=== PATIENT | male | born 1990 | race Caucasian/White ===

== ENCOUNTER → 2021-05-22 14:15 | Outpatient (BNVA) | payer MEDICAID, SELFPAY | PROVIDERS: PCP Internal Medicine; Referring Provider Internal Medicine; Visit Provider Nurse Practitioner Family | DX: K58.1 Irritable bowel syndrome with constipation (principal); R14.0 Abdominal distension (gaseous) | CPT/HCPCS: 36415; 82306; 82607; 82746; 84443; 86140; 86364; 99202 ==

== ENCOUNTER 2021-05-22 15:26 | Outpatient (REF) | payer MEDICAID, SELFPAY ==
[2021-05-22 16:27] LABS: C Reactive Protein 0.05 mg/dL (< or = 0.50)
[2021-05-22 16:50] LABS: TSH reflex Free T4 1.27 uIU/mL (0.32-4.0)
[2021-05-22 17:34] LABS: Folate > 20.0 ng/mL (> or = 4.0); Vitamin B12 966 pg/mL (200-900)
[2021-05-23 14:51] LABS: Transglutaminase Ab IgG <1.0 U/mL; Transglutaminase IgA <1.0 U/mL
[2021-05-26 12:56] LABS: Vitamin D 25-OH, D2 15 ng/mL; Vitamin D 25-OH, D3 34 ng/mL; Vitamin D 25-OH, Total 49 ng/mL (30-100)
== END 2021-05-22 15:27 | disposition home or self-care (01) ==
LOC: HO.LAB 15:26
PROVIDERS: PCP Psychiatry & Neurology Neurology; Visit Provider Nurse Practitioner Family
DX: R10.11 Right upper quadrant pain (principal); R19.7 Diarrhea, unspecified; E55.9 Vitamin D deficiency, unspecified; R14.0 Abdominal distension (gaseous); K58.9 Irritable bowel syndrome, unspecified
CPT/HCPCS: 36415; 82306; 82607; 82746; 84443; 86140; 86364

== ENCOUNTER 2021-06-20 14:56 | Outpatient (REF) | payer MEDICAID, SELFPAY ==
[2021-06-22 15:41] LABS: H Pylori Breath Test Negative (Negative)
== END 2021-06-20 14:57 | disposition home or self-care (01) ==
LOC: HO.LNP 14:56
PROVIDERS: PCP Psychiatry & Neurology Neurology; Referring Provider Psychiatry & Neurology Neurology; Visit Provider Nurse Practitioner Family
DX: K58.2 Mixed irritable bowel syndrome (principal); R14.0 Abdominal distension (gaseous); Z11.0 Encounter for screening for intestinal infectious diseases
CPT/HCPCS: 83013; 99212

== ENCOUNTER → 2021-12-18 15:10 | Outpatient (BNVA) | payer MEDICAID, SELFPAY | PROVIDERS: PCP Psychiatry & Neurology Neurology; Visit Provider Nurse Practitioner Family | DX: K58.2 Mixed irritable bowel syndrome (principal); R14.0 Abdominal distension (gaseous) | CPT/HCPCS: 99212 ==

== ENCOUNTER 2022-06-18 14:59 | Outpatient (REF) | payer MEDICAID, SELFPAY ==
[2022-06-18 16:17] LABS: Hematocrit 42.2 % (42.0-52.0); Hemoglobin 14.9 g/dl (14.0-18.0); Mean Corpuscular HGB Conc 35.3 g/dl (31.0-36.0); Mean Corpuscular Hemoglobin 30.5 pg (27.0-33.0); Mean Corpuscular Volume 86.3 fL (80.0-98.0); Mean Platelet Volume 9.7 fL (9.4-12.4); Platelet Count 326 X10*3/uL (160-400); Red Blood Count 4.89 X10*6/uL (4.60-5.80); White Blood Count 12.2 X10*3/uL (4.8-10.8)
[2022-06-18 16:36] LABS: Alanine Aminotransferase 25 U/L (0-40); Albumin Level 4.4 g/dL (3.5-5.0); Alkaline Phosphatase 85 U/L (39-117); Anion Gap 13 (12-20); Aspartate Amino Transferase 19 U/L (5-37); Bilirubin Total 0.6 mg/dL (0.0-1.0); Blood Urea Nitrogen 18 mg/dL (9-16); C Reactive Protein 1.73 mg/dL (< or = 0.50); Calcium 9.4 mg/dL (8.4-10.2); Carbon Dioxide 27 mmol/L (22-29); Chloride 103 mmol/L (96-108); Estimated Glomerular Filt Rate > 60; Glucose Random 135 mg/dL (60-115); Lipase 57 U/L (8-78); Sodium 139 mmol/L (135-145); Total Protein 7.6 g/dL (6.5-8.0)
[2022-06-22 15:43] LABS: Vitamin D 25-OH, D2 4 ng/mL; Vitamin D 25-OH, D3 31 ng/mL; Vitamin D 25-OH, Total 35 ng/mL (30-100)
== END 2022-06-18 15:00 | disposition home or self-care (01) ==
LOC: HO.LAB 14:59
PROVIDERS: PCP Internal Medicine; Visit Provider Nurse Practitioner Family
DX: R10.9 Unspecified abdominal pain (principal); E55.9 Vitamin D deficiency, unspecified; K21.9 Gastro-esophageal reflux disease without esophagitis; K58.2 Mixed irritable bowel syndrome; R14.0 Abdominal distension (gaseous)
CPT/HCPCS: 36415; 80053; 82306; 83690; 85027; 86140; 99212

== ENCOUNTER 2022-06-25 14:30 | Outpatient (REF) | payer MEDICAID, SELFPAY | END 2022-06-25 14:31 | disposition home or self-care (01) | LOC: HO.LNP 14:30 | PROVIDERS: Visit Provider Nurse Practitioner Family | DX: Z13.89 Encounter for screening for other disorder (principal) ==

== ENCOUNTER 2022-06-26 16:18 | Outpatient (REF) | payer MEDICAID, SELFPAY | END 2022-06-26 16:19 | disposition home or self-care (01) | LOC: HO.LNP 16:18 | PROVIDERS: Visit Provider Nurse Practitioner Family | DX: R10.9 Unspecified abdominal pain (principal) | CPT/HCPCS: 82656 ==

== ENCOUNTER 2025-01-06 11:36 | Outpatient (REF) | payer MEDICAID, SELFPAY ==
[2025-01-06 14:31] LABS: MANUAL DIFF FLAG NO
[2025-01-06 14:37] LABS: Hematocrit 41.5 % (42.0-52.0); Hemoglobin 14.7 g/dl (14.0-18.0); Imm Gran Abs Auto 0.02 X10*3/uL (0.00-0.03); Imm Gran Pct Auto 0.3 % (0.0-0.4); Lymphocytes Absolute Auto 2.6 X10*3/uL (1.2-4.9); Mean Corpuscular HGB Conc 35.4 g/dl (31.0-36.0); Mean Corpuscular Hemoglobin 30.3 pg (27.0-33.0); Mean Corpuscular Volume 85.6 fL (80.0-98.0); NRBC Abs Auto 0.000 X10*3/uL (0.0-0.012); NRBC Pct Auto 0.0 /100WBC (0.0-0.2); Platelet Count 308 X10*3/uL (160-400); Red Blood Count 4.85 X10*6/uL (4.60-5.80); White Blood Count 7.3 X10*3/uL (4.8-10.8)
[2025-01-06 14:55] LABS: Alanine Aminotransferase 47 U/L (0-40); Albumin Level 4.8 g/dL (3.5-5.0); Alkaline Phosphatase 105 U/L (39-117); Anion Gap 12 (12-20); Aspartate Amino Transferase 39 U/L (5-37); Blood Urea Nitrogen 16 mg/dL (9-16); Calcium 9.9 mg/dL (8.4-10.2); Carbon Dioxide 26 mmol/L (22-29); Chloride 105 mmol/L (96-108); Cholesterol 194 mg/dL (<200); Estimated Glomerular Filt Rate > 60; HDL Cholesterol 44 mg/dL (>40); Potassium 4.0 mmol/L (3.3-5.1); Sodium 139 mmol/L (135-145); Total Protein 8.1 g/dL (6.5-8.0); Triglycerides 164 mg/dL (<150)
[2025-01-06 17:41] LABS: Appearance Urine Clear; Glucose Urine UA Negative (Negative); PH 8.5 (5.0-9.0); Specific Gravity - Urine 1.015 (1.005-1.025)
[2025-01-07 08:06] LABS: HIV Num 1 0.06 S/CO (0.00-0.99); ~HepC Num1 0.13 S/CO (0.00-0.79); ~Hepatitis C Antibody Nonreactive (Nonreactive)
[2025-01-07 12:30] LABS: CT PCR Urine NOT DETECTED (Not Detect.); NG PCR Urine NOT DETECTED (Not Detect.)
== END 2025-01-06 11:37 | disposition home or self-care (01) ==
LOC: HO.CHCLDS 11:36
PROVIDERS: Visit Provider Internal Medicine
DX: Z00.00 Encounter for general adult medical examination without abnormal findings (principal); Z11.3 Encounter for screening for infections with a predominantly sexual mode of transmission; Z11.8 Encounter for screening for other infectious and parasitic diseases; Z11.4 Encounter for screening for human immunodeficiency virus [HIV]; Z11.59 Encounter for screening for other viral diseases
CPT/HCPCS: 36415; 80053; 80061; 81003; 84443; 85025; 86592; 86803; 87389; 87491; 87591

== ENCOUNTER 2025-02-07 10:45 | Outpatient (REF) | payer MEDICAID, SELFPAY ==
--- OUTSIDE RECORDS SUMMARY | 2025-02-07 10:45 | XMS_ITS | Encounter Summary ---
Author Organization [employer] Address [address] [place] [address] Care Team Providers Care Organizational Development Consultant Name Role Phone Alicia Maldonado MD Primary Care Provider [phone] Encounter Details Date Type Department Care Team ([facility] st Contact Info) Description 02/07/2025 10:45 AM EDT Immunization [facility] [address] [place] [address] Arrived Social History Tobacco Use Types Packs/Day Years Used Date Smoking Tobacco: Never Smokeless Tobacco: Never Depression Answer Date Recorded Patient Health Questionnaire-9 Score 6 01/06/2025 Patient Health Questionnaire-9 Score 6 01/06/2025 Last PHQ-9: Questionnaire Data Not on file 0 01/06/2025 Housing Stability Answer Date Recorded What is your housing situation today? I have brigittelydia ocampo 01/06/[address] you li ve. Do you have problems with any of the following? None of the above 01/06/2025 Food Insecurity Answer Date Recorded Within the past 12 months, y ou worried that your food would run out before you got money to buy more: Often true 01/06/2025 Within the past 12 months,th e food you bought just didn't last and you didn't have enough money to get more: Often true Transportation Answer Date Recorded In the past 12 months, has l ack of transportation kept you from medical appts, meetings, work or from getting things needed for daily living? No 03/24/2023 Utilities Answer Date Recorded In the past 12 months, has t he electric, gas, oil or water company threatened to shut off services in your home? No 01/06/2025 Depression Answer Date Recorded Patient Health Questionnaire-2 Score 0 01/06/2025 Internet Access Answer Date Recorded Internet Access Q1 Yes 01/06/2025 Internet Access Q2 Not on file 01/06/2025 Sex and Gender Information Value Date Recorded Sex Assigned at Male 03/18/2022 10:39 AM EDT Legal Sex Male 10:39 AM EDT Gender Identity Male 03/18/2022 10:39 AM EDT Sexual Orientation Lesbian or Boyle 03/18/2022 10 :39 AM EDT documented as of this encounter Progress Notes * Ghazala Nettles RN - 02/07/2025 10:45 AM EDT Author called out pt name x2 in waiting room and asked each individual in waiting room what name was. Pt not in waiting room each time when author called. documented in this encounter Plan of Treatment Not on file documented as of this encounter Visit Diagnoses Not on filedocumented in this encounter Additional Health Concerns Assessment Noted Time PHQ-9 Depression Total Score: 6 01/07/20 25 10:51 AM EDT documented as of this encounter Care Teams Organizational Development Consultant Relationship Specialty Start Date End Date Alicia Maldonado MD [address] [place] [phone] PCP - General Internal Medicine 03/12/21 documented as of this encounter
--- OUTSIDE RECORDS SUMMARY | 2025-02-07 13:15 | XMS_ITS | Clinical Summary ---
Author Organization [employer] Address [address] [place] [address] Care Team Providers Care Car Rider Name Role Phone Alicia Maldonado MD Primary Care Provider Allergies No known active allergies Medications ibuprofen 800 MG tabletIndicatio ns:Chronic right-sided low back pain without sciatica Take 1 tablet (800 mg) by mouth if needed each day for mild pain. 30 tablet 3 5 05/06/20 25 Active tiZANidine (Zanaflex) 2 MG tabletIndicatio ns:Chronic right-sided low back pain without sciatica Take 1 tablet (2 mg) by mouth every 6 (six) hours if needed for muscle spasms for up to 10 days. 30 tablet 5 Active carbamide peroxide (Debrox) 6.5 % otic solutionIndicat ions:Impacted cerumen of right ear Administer 5-10 drops into affected ear(s) 2 times daily for 4 days. 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 Asthma 07/18/2022 Encounters Date Type Department Care Team Description 02/07/2025 10:45 AM EDT Immunization [facility] [address] [place], [place] [phone] Arrived 02/07/2025 Travel 01/31/2025 Travel 01/07/2025 Results Follow-Up [facility] [address] [place], [place] [phone] Wing Alaina, RN CBC auto differential, Comprehensive Metabolic Panel, Lipid Panel, Standard, TSH with Reflex to Free T4 01/06/2025 10:45 AM EDT Office Visit [facility] [address] [place] [address] Alicia Maldonado MD Annual physical exam (Primary Dx); Chronic right-sided low back pain without sciatica; Other specified anxiety disorders; Dietary counseling; Exercise counseling; Class 1 obesity due to excess calories without serious comorbidity with body mass index (BMI) of 33.0 to 33.9 in adult; Impacted cerumen of right ear; Encounter for immunization 01/06/2025 Orders Only [facility] [address] [place] [address] Alicia Maldonado MD Transaminitis (Primary Dx) 01/06/2025 Patient Outreach [address] [address] Alicia Maldonado MD Care Coordination (CH[facility] outreach for SDOH food needs-referral completed /) 01/06/2025 Travel 01/05/2025 Telephone [facility] [address] [place] [address] Alicia Maldonado MD Chart Prep 12/31/2024 Travel 12/29/2024 Patient Outreach [facility] [address] [place] [phone] Alicia Maldonado MD Pre-visit Planning (Pre visit planning LVM ) 11/22/2024 Telephone [facility] [address] [place] [phone] Alicia Maldonado MD Nurse Triage from Last 3 Months Immunizations Immunization Administration Dates Next Due HepB-CpG 01/06/2025 Pneumococcal Conjugate PCV 20 01/06/2025 Tdap 01/06/2025 Family History Medical History Relation Name Comments Diabetes type II Maternal Grandmother Colon cancer Paternal Grandmother Lung cancer Paternal Grandmother Relation Name Status Comments Maternal Grandmother Paternal Grandmother Social History Tobacco Use Types Packs/Day Years Used Date Smoking Tobacco: Never Smokeless Tobacco: Never Tobacco Cessation:Counseling Given: Not Answered Depression Answer Date Recorded Patient Health Questionnaire-9 Score 6 01/06/2025 Patient Health Questionnaire-9 Score 6 01/06/2025 Last PHQ-9: Questionnaire Data Not on file 0 01/06/2025 Housing Stability Answer Date Recorded What is your housing situation today? I have brigitte ocampo 01/06/[address] you [...] or Boyle 03/18/2022 10 :39 AM EDT Last Filed Vital Signs Vital Sign Reading Time Taken Comments Blood Pressure 136/82 01/06/2025 10:43 AM EDT Pulse 88 01/06/2025 10:43 AM EDT Temperature 36.7 C (98.1 F) 01/06/2025 10:43 AM EDT Respiratory Rate 20 01/06/2025 10:43 AM EDT Oxygen Saturation 98% 01/06/2025 10:43 AM EDT Inhaled Oxygen Concentration - - Weight 99.8 kg (220 lb) 01/06/2025 10:43 AM EDT Height 172.7 cm (5' 8 ) 01/06/2025 10:43 AM EDT Body Mass Index 33.45 01/06/2025 10:43 AM EDT Plan of Treatment Health Maintenance Due Date Last Done Comments Family Planning (PISQ) 11/23/2006 HPV Vaccines (2 - Male 3-dose series) 04/06/2022 03/09/2022 SDOH Screening 07/19/2023 07/18/2022 COVID-19 Vaccine ( - season) 2025 03/09/2022, 06/08/2021, 11/13/2020, Additional history exists Influenza Vaccine (#1) 2025 Hepatitis B Vaccines (2 of 2 - CpG 2-dose series) 02/03/2025 01/06/2025 Disability Screening 12/31/2025 12/31/2024 Alcohol/Substance Use Screening 01/06/2026 01/06/2025 Depression Screening 01/06/2026 01/06/2025, 01/07/20 Tobacco Screening 01/06/2026 01/06/2025 Lipid Panel 01/06/2030 01/06/2025 DTaP/Tdap/Td Vaccines (2 - Td or Tdap) 01/06/2035 01/06/2025 Zoster Vaccines (1 of 2) 11/23/2041 RSV Patients and Patients Aged 60 years or older (1 - 1-dose 75+ series) 11/23/2066 HIV Screening Completed 01/06/2025, 07/18, 03/13/2021 Hepatitis C Screening Completed 01/06/2025 Pneumococcal Vaccine: Pediatrics (0 to 5 Years) and At-Risk Patients (6 to 49) Years Completed 01/06/2025 HIB Vaccines Aged Out No longer eligi ble based on patient's age to complete this topic Hepatitis A Vaccines Aged Out No long er eligible based on patient's age to complete this topic IPV Vaccines Aged Out No longer eligi ble based on patient's age to complete this topic Meningococcal B Vaccine Aged Out No l onger eligible based on patient's age to complete this topic Meningococcal Vaccine Aged Out No yajaira bryan eligible based on patient's age to complete this topic RSV under 20 months Aged Out No longe r eligible based on patient's age to complete this topic Rotavirus Vaccines Aged Out No longer eligible based on patient's age to complete this topic Procedures Procedure Name Priority Date/Time Associated Diagnosis Comments RPR (MONITOR) W/REFL TITER Routine 01/06/2025 11:40 AM EDT Annual physical exam HEPATITIS C AB W/REFL TO HCV RNA, QN, PCR Routine 01/06/2025 11:40 AM EDT Annual physical exam HIV 1/2 ANTIGEN/ANTIBODY, FOURTH GENERATION W/RFL Routine 01/06/2025 11:40 AM EDT Annual physical exam TSH W/REFLEX TO FT4 Routine 01/06/2025 1 1:40 AM EDT Annual physical exam LIPID PANEL, STANDARD Routine 01/06/2025 11:40 AM EDT Annual physical exam COMPREHENSIVE METABOLIC PANEL Routine 01/06/2025 11:40 AM EDT Annual physical exam CBC WITH AUTO DIFFERENTIAL Routine 01/06/2025 11:40 AM EDT Annual physical exam CHLAMYDIA/TRICHOMONAS/ NEISSERIA GONORRHOEAE, PCR, URINE Routine 01/06/2025 11:11 AM EDT Transaminitis URINALYSIS WITH REFLEX MICROSCOPIC Routine 01/06/2025 11:11 AM EDT Annual physical exam from Last 3 Months Results * TSH with Reflex to Free T4 (01/06/2025 11:40 AM EDT) TSH reflex Free T4 1.23 0.32 - 4.0 uIU/mL [facility] Blood Venous blood specimen / Unknown 01/06/2025 11:40 AM EDT 01/06/2025 2:27 PM EDT us Alicia Maldonado MD LAB BLOOD ORDERABLES Final Result [facility] [address] [place] [address] [phone] * (ABNORMAL) CBC auto differential (01/06/2025 11:40 AM EDT) White Blood Count 7.3 4.8 - 10.8 X10*3/uL [facility] Red Blood Count 4.85 4.60 - 5.80 X10*6/uL [facility] Hemoglobin 14.7 14.0 - 18.0 g/dl [facility] Hematocrit 41.5(L) 42.0 - 52.0 % [facility] Mean Corpuscular Volume 85.6 80.0 - 98.0 fL [facility] Mean Corpuscular Hemoglobin 30.3 27.0 - 33.0 pg [facility] Mean Corpuscular HGB Conc 35.4 31.0 - 36.0 g/dl [facility] Red Cell Distribution Width 12.3 11.0 - 16.0 % [facility] Platelet Count 308 160 - 400 X10*3/uL [facility] Mean Platelet Volume 10.4 9.4 - 12.4 fL [facility] Neutrophils Percent Auto 54.6 45 - 73 % [facility] Imm Gran Pct Auto 0.3 0.0 - 0.4 % [facility] Lymphocytes Percent Auto 36.0 20 - 40 % [facility] Monocytes Percent Auto 6.8 2 - 11 % [facility] Eosinophils Percent Auto 1.6 0 - 4 % [facility] Basophils Percent Auto 0.7 0 - 2 % [facility] NRBC Pct Auto 0.0 0.0 - 0.2 /100WBC [facility] Neutrophils Absolute Auto 4.0 2.0 - 8.3 x10*3/uL [facility] Imm Gran Abs Auto 0.02 0.00 - 0.03 X10*3/uL [facility] Lymphocytes Absolute Auto 2.6 1.2 - 4.9 X10*3/uL [facility] Monocytes Absolute Auto 0.5 0.1 - 1.2 X10*3/uL [facility] Eosinophils Absolute Auto 0.1 0.0 - 0.4 X10*3/uL [facility] Basophils Absolute Auto 0.1 0.0 - 0.2 X10*3/uL [facility] NRBC Abs Auto 0.000 0.0 - 0.012 X10*3/uL [facility] Blood Venous blood specimen / Unknown 01/06/2025 11:40 AM EDT 01/06/2025 2:27 PM EDT us Alicia Maldonado MD LAB BLOOD ORDERABLES Final Result Performing Organization Address [facility]/ZIP Co de Phone Number [facility] [address] [place] [phone] * Hepatitis C Antibody with Reflex to HCV, RNA, Quantitative, Real-Time PCR (01/06/2025 11:40 AM EDT) Hepatitis C Antibody Nonreactive Nonreactive [facility] Comment:Antibodies to HCV no t detected; does not exclude early acuteHCV infection. Blood Venous blood specimen / Unknown 01/06/2025 11:40 AM EDT 01/06/2025 2:27 PM EDT us Alicia Maldonado MD LAB BLOOD ORDERABLES Final Result Performing Organization Address City/[facility]/ZIP Co de Phone Number [facility] [address] [place] [phone] * RPR (Monitor) with Reflex to??Titer (01/06/2025 11:40 AM EDT) RPR (Monitor) w/Refl Titer NON-REACTI VE NON-REACT [facility]ER[facility] Comment:THIS TEST WAS PERFOR MED AT:[facility] [place] [phone] HENSON MD Rapid Plasma Reagin Ab Titer TNP [facility] Blood Venous blood specimen / Unknown 01/06/2025 11:40 AM EDT 01/06/2025 2:27 PM EDT us Alicia Maldonado MD LAB BLOOD ORDERABLES Final Result Performing Organization Address [facility] Co de Phone Number [facility] [address] [place] [address] [phone] * HIV-1/2 Antigen and Antibodies, Fourth Generation, with Reflexes (01/06/2025 11:40 AM EDT) HIV AB/AG Nonreactive Nonreactive [facility] Comment:HIV-1 p24 Ag and/or HIV-1/HIV-2 Ab not detected.A test result that is nonreactive does not exclude thepossibility of exposure to or infection with HIV-1 and/orHIV-2. Nonreactive results in this assay for individualswith prior exposure to HIV-1 and/or HIV-2 may be due toantigen and antibody levels that are below the limit ofdetection of this assay.[employer] HIV Ag/Ab Combo assay result andsupplemental assay results should be interpreted inconjunction with the patient's clinical presentation,history and other laboratory results. If the results areinconsistent with clinical evidence, additional testing issuggested to confirm the result. Blood Venous blood specimen / Unknown 01/06/2025 11:40 AM EDT 01/06/2025 2:27 PM EDT us Alicia Maldonado MD LAB BLOOD ORDERABLES Final Result Performing Organization Address [facility]/ZIP Co de Phone Number [facility] [address] [place] [phone] [phone] * (ABNORMAL) Lipid Panel, Standard (01/06/2025 11:40 AM EDT) Triglycerides 164(H) <150 mg/dL [facility] Comment:Desirable Triglyceri de: less than 150 mg/dLBorderline High Triglyceride 150-199 mg/dLHigh Triglyceride: 200-499 mg/dLVery High Triglyceride: greater than or equal to 5OO mg/dL Cholesterol 194 <200 mg/dL [facility] Comment:Desirable Cholestero l: less than 200 mg/dLBorderline High Cholesterol: 200-239 mg/dLHigh Cholesterol: greater than 239 mg/dL LDL Cholesterol Calculated 118(H) <100 mg/dL [facility] Comment:Desirable LDL: less than 100 mg/dLNear Optimal/Above Optimal LDL: 110- 129 mg/dLBorderline High LDL: 130-159 mg/dLHigh LDL: 160-189 mg/dLVery High LDL: greater than or equal to 190 mg/dL HDL Cholesterol 44 >40 mg/dL [facility] Comment:Desirable HDL: great er than 40 mg/dL Note: This HDL assay may give artificially low results in patients with liver disease. Blood Venous blood specimen / Unknown 01/06/2025 11:40 AM EDT 01/06/2025 2:27 PM EDT us Alicia Maldonado MD LAB BLOOD ORDERABLES Final Result [facility] [address] [place] [phone] * (ABNORMAL) Comprehensive Metabolic Panel (01/06/2025 11:40 AM EDT) Sodium 139 135 - 145 mmol/L [facility] Potassium 4.0 3.3 - 5.1 mmol/L [facility] Chloride 105 96 - 108 mmol/L [facility] Carbon Dioxide 26 22 - 29 mmol/L [facility] Anion Gap 12 12 - 20 [facility] Urea Nitrogen (BUN) 16 9 - 16 mg/dL [facility] Creatinine, Serum 1.12 0.5 - 1.4 mg/dL [facility] Estimated Glomerular Filt Rate >60 [facility] Comment:Chronic Kidney Disea se: Estimated GFR < 60 mL/min/1.09r7Ravbyd Kidney Disease: Estimated GFR < 15 mL/min/1.73m2 Glucose 89 60 - 115 mg/dL [facility] Calcium 9.9 8.4 - 10.2 mg/dL [facility] Bilirubin, Total 0.8 0.0 - 1.0 mg/dL [facility] Aspartate Amino Transferase 39(H) 5 - 37 U/L [facility] Alanine Aminotransferase 47(H) 0 - 40 U/L [facility] Total Protein 8.1(H) 6.5 - 8.0 g/dL [facility] Albumin Level 4.8 3.5 - 5.0 g/dL [facility] Alkaline Phosphatase 105 39 - 117 U/L [facility] Blood Venous blood specimen / Unknown 01/06/2025 11:40 AM EDT 01/06/2025 2:27 PM EDT us Alicia Maldonado MD LAB BLOOD ORDERABLES Final Result [facility] [address] [place] [phone] * Chlamydia/Trichomonas/Neisseria gonorrhoeae, PCR, Urine (01/06/2025 11:11 AM EDT) CT PCR, Urine NOT DETECTED Not Detect. [facility] Comment:A not detected test result does not exclude the possibilityof infection because test results can be affected byimproper specimen collection, concurrent antibiotic therapy,or the number of organisms in the specimen which may bebelow the sensitivity of the test. As with many diagnostictests, results from the Xpert CT/NG assay should beinterpreted in conjunction with other laboratory andclinical data available to the clinician.The Xpert CT/NG assay should not be used for the evaluationof suspected sexual abuse or for other medico-legalindications. Additional testing is recommended in anycircumstance when false positive or false negative resultscould lead to adverse medical, social or psychologicalconsequences. NG PCR, Urine NOT DETECTED Not Detect. [facility] Comment:A not detected test result does not exclude the possibilityof infection because test results can be affected byimproper specimen collection, concurrent antibiotic therapy,or the number of organisms in the specimen which may bebelow the sensitivity of the test. As with many diagnostictests, results from the Xpert CT/NG assay should beinterpreted in conjunction with other laboratory andclinical data available to the clinician.The Xpert CT/NG assay should not be used for the evaluationof suspected sexual abuse or for other medico-legalindications. Additional testing is recommended in anycircumstance when false positive or false negative resultscould lead to adverse medical, social or psychologicalconsequences. 01/06/2025 11:1 1 AM EDT 01/06/2025 5:34 PM EDT us Alicia Maldonado MD LAB URINE ORDERABLES Final Result Performing Organization Address [facility]/ZIP Co de Phone Number [facility] [address] [place] [phone] * Urinalysis w/reflex microscopic (01/06/2025 11:11 AM EDT) Color Urine Yellow [facility] Appearance Urine Clear [facility] PH 8.5 5.0 - 9.0 [facility] Glucose Urine UA Negative Negative mg/dL [facility] Urine Blood Negative Negative [facility] Specific [place] - Urine 1.015 1.005 - 1.025 [facility] Urine Protein Negative Neg-Trace mg/dL [facility] Urine Ketones Negative Negative mg/dL [facility] Nitrite Urine Negative Negative [facility] Leukocyte Esterase Urine Negative Negative [facility] Urine (Urine, Random) 01/06/2025 11:11 AM EDT 01/06/2025 5:34 PM EDT Narrative [facility] - 01/06/2025 5:42 PM EDT [id number], Clean Catch us Alicia Maldonado MD LAB URINE ORDERABLES Final Result Performing Organization Address [facility] Co de Phone Number [facility] [address] [place] [phone] from Last 3 Months Insurance [facility] Care Teams Car Rider Relationship Specialty Start Date End Date Alicia Mladonado MD [address] [place] [address] [place] [id number] PCP - General Internal Medicine 03/12/21
--- OUTSIDE RECORDS SUMMARY | 2025-02-07 13:15 | XMS_ITS | Encounter Summary ---
Author Organization [employer] Address [address] [facility] [address] [place] [address] Care Team Providers Care Acoustical Logging Engineer Name Role Phone Alicia Maldonado MD Primary Care Provider [phone]- [phone] Reason for Referral * Imaging (Routine) - Authorized Specialty Diagnoses / Procedures Referred By Contac t Referred To Contact Radiology Diagnoses Transaminitis Procedures US Abdomen Comp w elastography Alicia Maldonado MD [address] [place] [address] Phone: tel: fax: [address] Phone: tel: fax: Referral ID Status Reason Start Date Expiration Date V isits Requested Visits Authorized [id number] Authorized 01/06/2025 01/06/2026 1 1 Encounter Details Date Type Department Care Team (Late st Contact Info) Description 01/06/2025 Orders Only [facility] [address], [place] [phone] Alicia Maldonado MD [address] [place] [address] Transaminitis (Primary Dx) Social History Tobacco Use Types Packs/Day Years [...] AM EDT documented as of this encounter Functional Status * Over the past 2 weeks, how often have you been bothered by any of the following problems? Question Answer Date of Assessment Author Patient Health Questionnaire-2 Score 0 12/18 10:51 AM EDT Blessing Malcolm MA * Little interest or pleasure in doing things Answer Date of Assessment Author Not at all 01/06/2025 10:51 AM EDT Bart Malcolm MA * Feeling down, depressed, or hopeless Answer Date of Assessment Author Not at all 01/06/2025 10:51 AM EDT Bart Malcolm MA * Trouble falling or staying asleep, or sleeping too much Answer Date of Assessment Author Several days 01/06/2025 10:51 AM Bart Suazo MA * Feeling tired or having little energy Answer Date of Assessment Author Several days 01/06/2025 10:51 AM Bart Suazo MA * Poor appetite or overeating Answer Date of Assessment Author More than half the days 01/06/2025 10:51 AM Blessing Suazo MA * Feeling bad about yourself - or that you are a failure or have let yourself or your family down Answer Date of Assessment Author Not at all 01/06/2025 10:51 AM Bart Suazo MA * Trouble concentrating on things, such as reading the newspaper or watching television Answer Date of Assessment Author Several days 01/06/2025 10:51 AM Bart Suazo MA * Moving or speaking so slowly that other people could have noticed? Or the opposite - being so fidgety or restless that you have been moving around a lot more than usual. Answer Date of Assessment Author Several days 01/06/2025 10:51 AM Bart Suazo MA * Thoughts that you would be better off or hurting yourself in some way Answer Date of Assessment Author Not at all 01/06/2025 10:51 AM Bart Suazo MA * Patient Health Questionnaire-9 Score Answer Date of Assessment Author 6 01/06/2025 10:51 AM Bart Suazo MA * How difficult have these problems made it for you to do your work, take care of things at home, or get along with other people? Answer Date of Assessment Author Not difficult at all 01/06/2025 10:51 AM Blessing Tang MA documented as of this encounter Plan of Treatment Scheduled Orders Name Type Priority Associated Diagnoses Orde r Schedule Smooth Muscle Antibody with Reflex to Titer Lab Routine Transaminitis Expected: 01/06/2025 (Approximate), Expires: 01/06/2026 Immunoglobulins, Quantitative, IgA, IgG, IgM Lab Routine Transaminitis Expected: 01/06/2025 (Approximate), Expires: 01/06/2026 Prothrombin Time-INR Lab Routine Transaminitis Expected: 01/06/2025, Expires: 01/06/2026 Ferritin Lab Routine Transaminitis Expected: 01/06/2025, Expires: 01/06/2026 Iron And Total Iron Binding Capacity Lab Routine Transaminitis Expected: 01/06/2025, Expires: 01/06/2026 Alpha 1 Antitrypsin Lab Routine Transaminitis Expected: 01/06/2025 (Approximate), Expires: 01/06/2026 Hepatitis B Surface Antibody, Qualitative Lab Routine Transaminitis Expected: 01/06/2025 (Approximate), Expires: 01/06/2026 US Abdomen Comp w elastography Imaging Routine Transaminitis Expected: 01/06/2025, Expires: 01/06/2026 Hepatitis Panel, General Lab Routine Transaminitis Expected: 01/06/2025, Expires: 01/06/2026 documented as of this encounter Procedures Procedure Name Priority Date/Time Associated Diagnosis Comments CHLAMYDIA/TRICHOMON /NEISSERIA GONORRHOEAE, PCR, URINE Routine 01/06/2025 11:11 AM EDT Transaminitis documented in this encounter Results * Chlamydia/Trichomonas/Neisseria gonorrhoeae, PCR, Urine (01/06/2025 11:11 AM EDT) CT PCR, Urine NOT DETECTED Not Detect. [facility] Comment:A not detected test result [...] NG PCR, Urine NOT DETECTED Not Detect. [facility] Comment:A not detected test result [...] 1 AM EDT 01/06/2025 5:34 PM EDT Alicia Maldonado MD LAB URINE ORDERABLES Final Result [facility] [address] [place] [address] [phone] documented in this encounter Visit Diagnoses Diagnosis Transaminitis- Primary Nonspecific elevation of levels of transaminase or lactic acid dehydrogenase (LDH) documented in this encounter Additional Health Concerns Assessment Noted Time PHQ-9 Depression Total Score: 6 01/07/20 25 10:51 AM EDT documented as of this encounter Care Teams Acoustical Logging Engineer Relationship Specialty Start Date End Date Alicia Maldonado MD [address] [place] [id number] PCP - General Internal Medicine 03/12/21 documented as of this encounter
--- OUTSIDE RECORDS SUMMARY | 2025-02-07 13:15 | XMS_ITS | Encounter Summary ---
Author Organization [employer] Address [address] [facility] [address] [place] [address] Care Team Providers Care Certified Medication Technician Name Role Phone Alicia Maldonado MD Primary Care Provider [phone]- [phone] Reason for Visit * Reason Onset Date Comments ER Follow-up 11/10/2023 Nurse Triage 11/10/2023 Encounter Details Date Type Department Care Team (Late st Contact Info) Description 11/10/[address] [facility] [address] [place] [address] Alicia Maldonado MD [address] [place], [place] [phone] ER Follow-up; Nurse Triage Social History Tobacco Use Types Packs/Day Years Used Date Smoking Tobacco: Never Smokeless Tobacco: Never Depression Answer Date Recorded Patient Health Questionnaire-9 Score 12 07/18/2022 Housing Stability Answer Date Recorded What is your housing situation today? Not on evelyn e 03/24/[address] you li ve. Do you have problems with any of the following? None of the above 03/24/2023 Food Insecurity Answer Date Recorded Within the past 12 months, y ou worried that your food would run out before you got money to buy more: Never True 03/24/2023 Within the past 12 months,th e food you bought just didn't last and you didn't have enough money to get more: Never True 10/2022 Transportation Answer Date Recorded In the past 12 months, has l ack of transportation kept you from medical appts, meetings, work or from getting things needed for daily living? No 03/24/2023 Utilities Answer Date Recorded In the past 12 months, has t he electric, gas, oil or water company threatened to shut off services in your home? No 03/24/2023 Depression Answer Date Recorded Patient Health Questionnaire-2 Score 2 07/18/2022 Sex and Gender Information Value Date Recorded Sex Assigned at Male 03/18/2022 10:39 AM EDT Legal Sex Male 10:39 AM EDT Gender Identity Male 03/18/2022 10:39 AM EDT Sexual Orientation Lesbian or [place]le 03/18/2022 10 :39 AM EDT documented as of this encounter Miscellaneous Notes * Telephone Encounter - Savannah Almodovar RN - 11/10/2023 3:52 PM EDT Triage call Pt reports being seen in [facility] ED on 11/09/23, for symptoms of chest pain. Pt reports EKG , labs all clear no significant results. Pt had chest pain for 4-5 days and was under alotof stress due to job and moving. Pt reports feels better at time of call with just a little chest tightness felt. Neg for fever, cough, radiation of pain to arm. Pt is given apt with Dr. Coyle11/19/23 @ 330pm. Pt has had change in insurance to [facility]. Pt is advised to call [facility] and update insurance information. Pt agrees with disposition and plan. Pt is advised if chest pain changes or increases prior to apt return to ED for further evaluation. Pt agrees. Request for ED report for chart will be sent. Protocol Used: Chest Pain (Adult) Protocol-Based Disposition: See in Office or Video Visit Today Override (Final) Disposition: See in Office or Video Visit within 2 Weeks Override Reason: Other Override Notes: Pt seen in Ed , follow up apt scheduled now Video visit offer not recorded Positive Triage Question: * All other patients with chest pain (Exception: Fleeting chest pain lasting a few seconds.) * All higher-acuity triage questions were negative Care Advice Discussed: * Reasons To Call Back - Chest pain increases in frequency, duration or severity - Chest pain lasts over 5 minutes - Chest pains persist over 3 days - Difficulty breathing or unusual sweating occurs - Fever over 100.4 F (38.0 C) - You become worse * Telephone Encounter - Jennifer Lyn - 11/10/2023 3:13 PM EDT Patient calling to report ED visit on : Date: 11/08 Hospital: [facility] Seen for: Chest Pain Patient advised will forward to team nurse for follow up. Symptom: Chest Pain - Adult Outcome: Schedule an urgent appointment (within 1 hour) or talk to a nurse or provider soon Reason: Caller denied all higher acuity questions The caller accepted this outcome documented in this encounter Plan of Treatment Not on file documented as of this encounter Visit Diagnoses Not on filedocumented in this encounter Additional Health Concerns Assessment Noted Time PHQ-9 Depression Total Score: 12 03/2 023 2:08 PM EST documented as of this encounter Care Teams Certified Medication Technician Relationship Specialty Start Date End Date Alicia Maldonado MD [address] [place] [id number] PCP - General Internal Medicine 03/12/21 documented as of this encounter
--- OUTSIDE RECORDS SUMMARY | 2025-02-07 13:15 | XMS_ITS | Encounter Summary ---
Author Organization [employer] Address [address] [place] [address] Care Team Providers Care Field Artillery Fire Control Man Name Role Phone Alicia Maldonado MD Primary Care Provider [phone]- [phone] Encounter Details Date Type Department Care Team (Latest Contact Info) Description 02/07/2025 Travel Social History Tobacco Use Types Packs/Day Years [...] AM EDT documented as of this encounter Plan of Treatment Not on file documented as of this encounter Visit Diagnoses Not on filedocumented in this encounter Additional Health Concerns Assessment Noted Time PHQ-9 Depression Total Score: 6 01/07/20 10:51 AM EDT documented as of this encounter Care Teams Field Artillery Fire Control Man Relationship Specialty Start Date End Date Alicia Maldonado MD [address] [place] [address] PCP - General Internal Medicine 03/12/21 documented as of this encounter
[2025-02-07 14:36] LABS: INTERNATIONAL NORM RATIO 1.0 (0.9-1.1); Prothrombin Time 11.6 SEC (10.9-12.4)
[2025-02-07 14:50] LABS: Iron 100 mcg/dL (45-160); Percent Iron Saturation 41 % (15-50); Total Iron Binding Capacity 246 mcg/dL (228-428); Unsaturated Iron Binding 146 ug/dL
[2025-02-07 14:56] LABS: Ferritin 108 ng/mL (20-250)
[2025-02-07 16:51] LABS: CT PCR Urine NOT DETECTED (Not Detect.); NG PCR Urine NOT DETECTED (Not Detect.)
[2025-02-08 13:50] LABS: HBS Num1 184.08 mIU/mL (0-7.99); HBc Num1 0.06 S/CO (0.00-0.79); HBsAGNum1 0.46 S/CO (0.00-0.99); Hepatitis A Antibody IgM 0.20 Index (0-0.79); Hepatitis B Surface Antigen Negative (Negative); ~HepC Num1 0.07 S/CO (0.00-0.79); ~Hepatitis A Antibody IgM Nonreactive (Nonreactive); ~Hepatitis B Surface Antibody REACTIVE (Nonreactive); ~Hepatitis C Antibody Nonreactive (Nonreactive)
== END 2025-02-07 10:46 | disposition home or self-care (01) ==
LOC: HO.CHCLDS 10:45
PROVIDERS: Visit Provider Internal Medicine
DX: Z00.00 Encounter for general adult medical examination without abnormal findings (principal); Z11.59 Encounter for screening for other viral diseases; Z11.3 Encounter for screening for infections with a predominantly sexual mode of transmission; Z11.8 Encounter for screening for other infectious and parasitic diseases; R74.01 Elevation of levels of liver transaminase levels
CPT/HCPCS: 82728; 82784; 83540; 85610; 86704; 86706; 86709; 86803; 87340; 87491; 87591

== ENCOUNTER 2025-03-07 07:46 | Outpatient (REF) | payer OTHER, SELFPAY ==
--- NOTE | ~2025-03-07 | US_ITS ---
EXAMINATION: US ABDOMEN COMPLETE WITH LIVER ELASTOGRAPHY HISTORY: Transaminitis TECHNIQUE: Real-time grayscale ultrasound imaging of the abdomen was performed and images were reviewed. COMPARISON: There are no prior studies available for comparison. FINDINGS: Liver: The right lobe of the liver measures 8.9 cm in size. The left lobe of the liver measures 14.2 cm in size. The liver demonstrates normal homogeneous echotexture. No focal mass or intrahepatic biliary ductal dilatation is identified. There is normal hepatopedal flow in the portal vein. Ultrasound elastography of the liver was performed with 10 separate measurements of the liver parenchyma with the patient in the supine position. Measurements were obtained approximately 2 cm below Talia's capsule and perpendicular to the capsule. The median shear wave velocity is 1.71 m/s. The interquartile range/median (IQR/median) is 0.02. Gallbladder and biliary tree: There is a gallbladder polyp measuring up to 5 mm in size. The gallbladder is otherwise unremarkable, without evidence of calculi, wall thickening, or pericholecystic fluid. There is no sonographic Carreno sign. The common bile duct is normal in caliber measuring 4 mm. Kidneys: The right kidney measures 10.8 cm in length. The left kidney measures 11.7 cm in length. The kidneys are unremarkable, without evidence of masses, hydronephrosis, or calculi. Pancreas: The pancreas is obscured by bowel gas. Spleen: The spleen is normal in size and contour, measuring 11.0 cm in length. Abdominal aorta and inferior vena cava: The visualized portions of the abdominal aorta and inferior vena cava are normal in caliber. There is no free fluid in the abdomen. US/US abdomen comp w elastography IMPRESSION: Enlarged left lobe of the liver. The median shear wave velocity in the liver is 1.71 m/s, corresponding to a median liver stiffness of 8.94 kPa. The IQR/median value is 0.02. This is indicative of a quality data set. Findings are indicative of a high elastography value indicating advanced chronic liver disease. REFERENCE: Society of Radiologists in Ultrasound Liver Stiffness Thresholds (2019): LIVER STIFFNESS THRESHOLDS: *Shear wave velocity less than 1.3 m/s (Liver Stiffness equal or less than 5 kPa): High probability of being normal. *Shear wave velocity less than 1.7 m/s (Liver Stiffness less than 9 kPa): In the absence of other known clinical signs, rules out compensated advanced chronic liver disease. *Shear wave velocity between 1.7-2.1 m/s (Liver Stiffness 9-13 kPa): Suggestive of compensated advanced chronic liver disease but need further test for confirmation. *Shear wave velocity between 2.1-2.4 m/s (Liver Stiffness 13-17 kPa): Rules in compensated advanced chronic liver disease. *Shear wave velocity greater than 2.4 m/s (Liver Stiffness over 17 kPa): Suggestive of clinically significant portal hypertension. QUALITY OF DATA SET: *IQR/Median value equal or less than 0.15 implies a quality data set. *IQR/Median value over 0.15 implies a poor quality data set. SIGNIFICANT CHANGE FROM PRIOR EXAM: Significant change if liver stiffness measurement is 10% or greater from prior exam. OTHER CONSIDERATIONS: The stage of liver fibrosis may be overestimated in the setting of acute hepatitis, liver inflammation, elevated liver function tests, hepatic vascular congestion, obstructive cholestasis, non-fasting state, and infiltrative diseases such as amyloidosis and lymphoma. In some patients with NAFLD, the liver stiffness thresholds for compensated advanced chronic liver disease may be lower. In causes other than viral hepatitis and NAFLD, liver stiffness thresholds are not well established. Electronically signed by: Ranjeet Olvera MD 03/07/2025 08:54 AM EDT
--- OUTSIDE RECORDS SUMMARY | 2025-03-07 07:49 | XMS_ITS | Clinical Summary ---
Author Organization [employer] Address [address] [facility] 7t [place] [address] Care Team Providers Care Environmental Services Technician Name Role Phone Alicia Maldonado MD Primary Care Provider [phone]- [phone] Allergies No known active allergies Medications ibuprofen 800 MG tabletIndication s:Chronic right-sided low back pain without sciatica Take 1 tablet (800 mg) by mouth if needed each day for mild pain. 30 tablet 3 01/06/2025 Active tiZANidine (Zanaflex) 2 MG tabletIndication s:Chronic right-sided low back pain without sciatica Take 1 tablet (2 mg) by mouth every 6 (six) hours if needed for muscle spasms for up to 10 days. 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 Asthma 07/18/2022 Encounters Date Type Department Care Team Description 02/07/2025 10:45 AM EDT Immunization [facility] [address] [place] [address] 02/07/2025 Results Follow-Up [facility] [address] [place] [address] Alicia Maldonado MD Prothrombin Time-INR, Ferritin, Iron And Total Iron Binding Capacity, Additional followed-up results: 4 02/07/2025 Travel 01/31/2025 Travel 01/07/2025 Results Follow-Up [facility] [address] [place] [address] Wing Alaina RN CBC auto differential, Comprehensive Metabolic Panel, Lipid Panel, Standard, TSH with Reflex to Free T4 01/06/2025 10:45 AM EDT Office Visit [facility] [address] [place] [address] Alicia Maldonado MD Annual physical exam (Primary Dx); Chronic right-sided low back pain without sciatica; Other specified anxiety disorders; Dietary counseling; Exercise counseling; Class 1 obesity due to excess calories without serious comorbidity with body mass index (BMI) of 33.0 to 33.9 in adult; Impacted cerumen of right ear; Encounter for immunization 01/06/2025 Orders Only [facility] P[facility] [address] [place] [address] Alicia Maldonado MD Transaminitis (Primary Dx) 01/06/2025 Patient Outreach [facility] [address] [place] [phone] Alicia Maldonado MD Care Coordination (CHW outreach for SDOH food needs-referral completed /) 01/06/2025 Travel 01/05/2025 Telephone [facility] [address] [place] [address] Alicia Maldonado MD Chart Prep 12/31/2024 Travel 12/29/2024 Patient Outreach [facility] [address] [place] [phone] Alicia Maldonado MD Pre-visit Planning (Pre visit planning LVM ) from Last 3 Months Immunizations Immunization Administration [...] 03/09/2022 SDOH Screening 07/19/2023 07/18/2022 COVID-19 Vaccine (5 - season) 2025 03/09/2022, 06/08/2021, 11/13/2020, Additional history exists Influenza Vaccine (#1) 2025 Hepatitis B Vaccines (2 of 2 - CpG 2-dose series) 02/03/2025 01/06/2025 Disability Screening 12/31/2025 12/31/2024 Alcohol/Substance Use Screening 01/06/2026 01/06/2025 Depression Screening 01/06/2026 01/06/2025, 01/07/20 25 Tobacco Screening 01/06/2026 01/06/2025 Lipid Panel 01/06/2030 01/06/2025 DTaP/Tdap/Td Vaccines (2 - Td or Tdap) 01/06/2035 01/06/2025 Zoster Vaccines (1 of 2) 11/23/2041 RSV Patients and Patients Aged 60 years or older (1 - 1-dose 75+ series) 11/23/2066 HIV Screening Completed 01/06/2025, 07/18, 03/13/2021 Pneumococcal Vaccine: Pediatrics (0 to 5 Years) and At-Risk Patients (6 to 49) Years Completed 01/06/2025 Hepatitis C Screening Completed 02/07/2025, 025 HIB Vaccines Aged Out No longer eligi [...] Procedure Name Priority Date/Time Associated Diagnosis Comments CHLAMYDIA/TRICHOMONAS/ NEISSERIA GONORRHOEAE, PCR, URINE Routine 02/07/2025 10:55 AM EDT Transaminitis HEPATITIS PANEL, GENERAL Routine 02/07/2025 10:48 AM EDT Transaminitis IRON AND TOTAL IRON BINDING CAPACITY Routine 02/07/2025 10:48 AM EDT Transaminitis FERRITIN Routine 02/07/2025 10:48 AM EDT Transaminitis PROTHROMBIN TIME-INR Routine 02/07/2025 10:48 AM EDT Transaminitis IMMUNOGLOBULINS, QUANTITATIVE, IGA, IGG, IGM Routine 02/07/2025 10:48 AM EDT Transaminitis RPR (MONITOR) W/REFL TITER Routine 01/06/2025 11:40 [...] exam from Last 3 Months Results * Chlamydia/Trichomonas/Neisseria gonorrhoeae, PCR, Urine (02/07/2025 10:55 AM EDT) Only the most recent of2 resultswithin the time period is included. CT PCR, Urine NOT DETECTED Not Detect. [facility] Comment:A not detected test result [...] NG PCR, Urine NOT DETECTED Not Detect. [facility] Comment:A not detected test result [...] lead to adverse medical, social or psychologicalconsequences. 02/07/2025 10:5 5 AM EDT 02/07/2025 2:28 PM EDT us Alicia Maldonado MD LAB URINE ORDERABLES Final Result [facility] [address] [place] [phone] * Hepatitis Panel, General (02/07/2025 10:48 AM EDT) [facility] Hepatitis A IgM Nonreactive Nonreactive [facility] Comment:IgM antibodies to GUILLEN V not detected; does not exclude earlyacute or recovered HAV infection. ~Hepatitis B Surface Antibody REACTIVE Nonreactive [facility] Comment:REACTIVE: > 11.99 mI U/mL Hepatitis B Core Antibody Nonreactive Nonreactive [facility] Hepatitis C Antibody Nonreactive Nonreactive [facility] Comment:Antibodies to HCV no t detected; does not exclude early acuteHCV infection. Hepatitis B Surface Ag Negative Negative [facility] Blood Venous blood specimen / Unknown 02/07/2025 10:48 AM EDT 02/07/2025 2:14 PM EDT us Alicia Maldonado MD LAB BLOOD ORDERABLES Final Result Performing Organization Address City/[facility] Co de Phone Number [facility] [address] [place] [phone] * Iron And Total Iron Binding Capacity (02/07/2025 10:48 AM EDT) [facility] Iron 100 45 - 160 mcg/dL [facility] Total Iron Binding Capacity 246 228 - 428 mcg/dL [facility] Percent Iron Saturation 41 15 - 50 % [facility] Unsaturated Iron Binding 146 ug/dL [facility] Blood Venous blood specimen / Unknown 02/07/2025 10:48 AM EDT 02/07/2025 2:14 PM EDT Alicia Maldonado MD LAB BLOOD ORDERABLES Final Result Performing Organization Address [facility] Co de Phone Number [facility] [address] [place] [phone] * Prothrombin Time-INR (02/07/2025 10:48 AM EDT) [facility] Prothrombin Time 11.6 10.9 - 12.4 SEC [facility] INTERNATIONAL NORM RATIO 1.0 0.9 - 1.1 [facility] Comment:INTERNATIONAL NORMAL IZED RATIO (INR) REFERENCE RANGES Reference RangeFor patients not on anticoagulant therapy: 0.9 - 1.1INR ranges for oral anticoagulanttherapy:For prevention and treatment of venous thrombosis and pulmonary embolism: 2.0 - 3.0For acute myocardial infarction with aspirin therapy: 2.0 - 3.0For acute myocardial infarction without aspirin therapy: 3.0 - 4.0For patients with mechanical prosthetic heart valves: 2.5 - 3.5 Blood Venous blood specimen / Unknown 02/07/2025 10:48 AM EDT 02/07/2025 2:14 PM EDT Alicia Maldonado MD LAB BLOOD ORDERABLES Final Result Performing Organization Address [facility] de Phone Number [facility] [address] [place] [phone] * (ABNORMAL) Immunoglobulins, Quantitative, IgA, IgG, IgM (02/07/2025 10:48 AM EDT) [facility] IMMUNOGLOBULIN G 1534 600 - 1640 mg/dL [facility] IMMUNOGLOBULIN A 362(A) 47 - 310 mg/dL [facility] Immunoglobulin M 194 50 - 300 mg/dL [facility] Comment:THIS TEST WAS PERFOR MED AT:[employer] [address] [id number] HENSON MD Blood Venous blood specimen / Unknown 02/07/2025 10:48 AM EDT 02/07/2025 2:14 PM EDT Alicia Maldonado MD LAB BLOOD ORDERABLES Final Result Performing Organization Address [facility] Co de Phone Number [facility] [address] [place] [phone] * Ferritin (02/07/2025 10:48 AM EDT) [facility] Ferritin 108 20 - 250 ng/mL [facility] Blood Venous blood specimen / Unknown 02/07/2025 10:48 AM EDT 02/07/2025 2:14 PM EDT Alicia Maldonado MD LAB BLOOD ORDERABLES Final Result Performing Organization Address City/[facility]/ZIP Co de Phone Number [facility] [address] [place] [phone] * TSH with Reflex to Free T4 (01/06/2025 11:40 AM EDT) Pathologist [facility] TSH reflex Free T4 1.23 0.32 - 4.0 uIU/mL [facility] Blood Venous blood specimen / Unknown 01/06/2025 11:40 AM EDT 01/06/2025 2:27 PM EDT us Alicia Maldonado MD LAB BLOOD ORDERABLES Final Result Performing Organization Address City/[facility]/ZIP Co de Phone Number [facility] [address] [place] [phone] * (ABNORMAL) CBC auto differential (01/06/2025 11:40 AM EDT) Pathologist [facility] White Blood Count 7.3 4.8 - 10.8 X10*3/uL [facility] Red Blood Count 4.85 4.60 - 5.80 X10*6/uL [facility] Hemoglobin 14.7 14.0 - 18.0 g/dl [facility] Hematocrit 41.5(L) 42.0 - 52.0 % [facility] Mean Corpuscular Volume 85.6 80.0 - 98.0 fL [facility] Mean Corpuscular Hemoglobin 30.3 27.0 - 33.0 pg [facility] Mean Corpuscular HGB Conc 35.4 31.0 - 36.0 g/dl [facility] Red Cell Distribution Width 12.3 11.0 - 16.0 % [facility] Platelet Count 308 160 - 400 X10*3/uL [facility] Mean Platelet Volume 10.4 9.4 - 12.4 fL [facility] Neutrophils Percent Auto 54.6 45 - 73 % [facility] Imm Gran Pct Auto 0.3 0.0 - 0.4 % [facility] Lymphocytes Percent Auto 36.0 20 - 40 % [facility] Monocytes Percent Auto 6.8 2 - 11 % [facility] Eosinophils Percent Auto 1.6 0 - 4 % [facility] Basophils Percent Auto 0.7 0 - 2 % [facility] NRBC Pct Auto 0.0 0.0 - 0.2 /100WBC [facility] Neutrophils Absolute Auto 4.0 2.0 - 8.3 x10*3/uL [facility] Imm Gran Abs Auto 0.02 0.00 - 0.03 X10*3/uL [facility] Lymphocytes Absolute Auto 2.6 1.2 - 4.9 X10*3/uL [facility] Monocytes Absolute Auto 0.5 0.1 - 1.2 X10*3/uL [facility] Eosinophils Absolute Auto 0.1 0.0 - 0.4 X10*3/uL [facility] Basophils Absolute Auto 0.1 0.0 - 0.2 X10*3/uL [facility] NRBC Abs Auto 0.000 0.0 - 0.012 X10*3/uL [facility] Blood Venous blood specimen / Unknown 01/06/2025 11:40 AM EDT 01/06/2025 2:27 PM EDT us Alicia Maldonado MD LAB BLOOD ORDERABLES Final Result [facility] [address] [place] [phone] * Hepatitis C Antibody with Reflex to HCV, RNA, Quantitative, Real-Time PCR (01/06/2025 11:40 AM EDT) Hepatitis C Antibody Nonreactive Nonreactive [facility] Comment:Antibodies to HCV no t detected; does not exclude early acuteHCV infection. Blood Venous blood specimen / Unknown 01/06/2025 11:40 AM EDT 01/06/2025 2:27 PM EDT Alicia Maldonado MD LAB BLOOD ORDERABLES Final Result Performing Organization Address [facility] de Phone Number [facility] [address] [place] [phone] * RPR (Monitor) with Reflex to??Titer (01/06/2025 11:40 AM EDT) Pathologist [facility] RPR (Monitor) w/Refl Titer NON-REACTI VE NON-REACT [facility] Comment:THIS TEST WAS PERFOR MED AT:[facility] [address] [id number] HENSON MD Rapid Plasma Reagin Ab Titer TNP [facility] Blood Venous blood specimen / Unknown 01/06/2025 11:40 AM EDT 01/06/2025 2:27 PM EDT Alicia Maldonado MD LAB BLOOD ORDERABLES Final Result Performing Organization Address [facility] de Phone Number [facility] [address] [place] [phone] * HIV-1/2 Antigen and Antibodies, Fourth Generation, with Reflexes (01/06/2025 11:40 AM EDT) [facility] HIV AB/AG Nonreactive Nonreactive [facility] Comment:HIV-1 p24 Ag and/or HIV-1/HIV-2 Ab not detected.A test result that is nonreactive does not exclude thepossibility of exposure to or infection with HIV-1 and/orHIV-2. Nonreactive results in this assay for individualswith prior exposure to HIV-1 and/or HIV-2 may be due toantigen and antibody levels that are below the limit ofdetection of this assay.The [employer] Alinity HIV Ag/Ab Combo assay result andsupplemental assay results should be interpreted inconjunction with the patient's clinical presentation,history and other laboratory results. If the results areinconsistent with clinical evidence, additional testing issuggested to confirm the result. Blood Venous blood specimen / Unknown 01/06/2025 11:40 AM EDT 01/06/2025 2:27 PM EDT us Alicia Maldonado MD LAB BLOOD ORDERABLES Final Result [facility] [address] [place] [phone] * (ABNORMAL) Lipid Panel, Standard (01/06/2025 11:40 AM EDT) Triglycerides 164(H) <150 mg/dL [facility] Comment:Desirable Triglyceri de: less than 150 mg/dLBorderline High Triglyceride 150-199 mg/dLHigh Triglyceride: 200-499 mg/dLVery High Triglyceride: greater than or equal to 5OO mg/dL Cholesterol 194 <200 mg/dL [facility] Comment:Desirable Cholestero l: less than 200 mg/dLBorderline High Cholesterol: 200-239 mg/dLHigh Cholesterol: greater than 239 mg/dL LDL Cholesterol Calculated 118(H) <100 mg/dL [facility] Comment:Desirable LDL: less than 100 mg/dLNear Optimal/Above Optimal LDL: 110- 129 mg/dLBorderline High LDL: 130-159 mg/dLHigh LDL: 160-189 mg/dLVery High LDL: greater than or equal to 190 mg/dL HDL Cholesterol 44 >40 mg/dL [facility] Comment:Desirable HDL: great er than 40 mg/dL Note: This HDL assay may give artificially low results in patients with liver disease. Blood Venous blood specimen / Unknown 01/06/2025 11:40 AM EDT 01/06/2025 2:27 PM EDT us Alicia Maldonado MD LAB BLOOD ORDERABLES Final Result Performing Organization Address City/[facility]/ZIP Co de Phone Number [facility] [address], [place] [phone] * (ABNORMAL) Comprehensive Metabolic Panel (01/06/2025 11:40 AM EDT) Sodium 139 135 - 145 mmol/L [facility] Potassium 4.0 3.3 - 5.1 mmol/L [facility] Chloride 105 96 - 108 mmol/L [facility] Carbon Dioxide 26 22 - 29 mmol/L [facility] Anion Gap 12 12 - 20 [facility] Urea Nitrogen (BUN) 16 9 - 16 mg/dL [facility] Creatinine, Serum 1.12 0.5 - 1.4 mg/dL [facility] Estimated Glomerular Filt Rate >60 [facility] Comment:Chronic Kidney Disea se: Estimated GFR < 60 mL/min/1.28w2Raeyqe Kidney Disease: Estimated GFR < 15 mL/min/1.73m2 Glucose 89 60 - 115 mg/dL [facility] Calcium 9.9 8.4 - 10.2 mg/dL [facility] Bilirubin, Total 0.8 0.0 - 1.0 mg/dL [facility] Aspartate Amino Transferase 39(H) 5 - 37 U/L [facility] Alanine Aminotransferase 47(H) 0 - 40 U/L [facility] Total Protein 8.1(H) 6.5 - 8.0 g/dL [facility] Albumin Level 4.8 3.5 - 5.0 g/dL [facility] Alkaline Phosphatase 105 39 - 117 U/L [facility] Blood Venous blood specimen / Unknown 01/06/2025 11:40 AM EDT 01/06/2025 2:27 PM EDT us Alicia Maldonado MD LAB BLOOD ORDERABLES Final Result Performing Organization Address City/[facility]/ZIP Co de Phone Number [facility] [address] [place] [phone] * Urinalysis w/reflex microscopic (01/06/2025 11:11 AM EDT) Color Urine Yellow [facility] Appearance Urine Clear [facility] PH 8.5 5.0 - 9.0 [facility] Glucose Urine UA Negative Negative mg/dL [facility] Urine Blood Negative Negative [facility] Specific [place] - Urine 1.015 1.005 - 1.025 [facility] Urine Protein Negative Neg-Trace mg/dL [facility] Urine Ketones Negative Negative mg/dL [facility] Nitrite Urine Negative Negative [facility] Leukocyte Esterase Urine Negative Negative [facility] Urine (Urine, Random) 01/06/2025 11:11 AM EDT 01/06/2025 5:34 PM EDT Narrative [facility] - 01/06/2025 5:42 PM EDT [id number], Clean Catch us Alicia Maldonado MD LAB URINE ORDERABLES Final Result [facility] [address] [place] [phone] from Last 3 Months Insurance [facility] Care Teams Environmental Services Technician Relationship Specialty Start Date End Date Alicia Maldonado MD [address] [place] [address] [place] [phone] PCP - General Internal Medicine 03/12/21
--- OUTSIDE RECORDS SUMMARY | 2025-03-07 07:49 | XMS_ITS | Encounter Summary ---
Author Organization [employer] Address [address] [facility] 7 [place] [address] Care Team Providers Care Basket Assembler Name Role Phone Alicia Maldonado MD Primary Care Provider [phone]- [phone] Reason for Visit * Reason Onset Date Comments ER Follow-up 11/10/2023 Nurse Triage 11/10/2023 Encounter Details Date Type Department Care Team (Late st Contact Info) Description 11/10/2023 Telephone [facility] [address] [place] [address] Alicia Maldonado MD [address] [place], [place] [phone] ER Follow-up; Nurse Triage Social History Tobacco [...] Triage call Pt reports being seen in [facility] ED on 11/09/23, for symptoms of [...] Pt has had change in insurance to [facility]. Pt is advised to call [facility] and update insurance information. Pt agrees with [...] ED visit on : Date: 11/08 Hospital: [facility] Seen for: Chest Pain Patient advised [...] documented as of this encounter Care Teams Basket Assembler Relationship Specialty Start Date End Date Alicia Maldonado MD [address] [place] [phone] PCP - General Internal Medicine 03/12/21 documented as of this encounter
--- OUTSIDE RECORDS SUMMARY | 2025-03-07 07:49 | XMS_ITS | Encounter Summary ---
Author Organization [employer] Address [address] [facility] [address] [place] [address] Care Team Providers Care Milk Handler Name Role Phone Alicia Maldonado MD Primary Care Provider [phone]- [phone] Encounter Details Date Type Department Care Team ([facility] st Contact Info) Description 02/07/2025 Results Follow-Up [facility] [address] [place], [place] [phone] Alicia Maldonado MD [address] [place] [address] Prothrombin Time-INR, Ferritin, Iron And Total Iron Binding Capacity, Additional followed-up results: 4 Social History Tobacco Use Types Packs/Day Years Used Date Smoking Tobacco: Never Smokeless Tobacco: Never Depression Answer Date Recorded Patient Health Questionnaire-9 Score 6 01/06/2025 Patient Health Questionnaire-9 Score 6 01/06/2025 Last PHQ-9: Questionnaire Data Not on file 0 01/06/2025 Housing Stability Answer Date Recorded What is your housing situation today? I have brigitte sing 01/06/[address] you li [...] documented as of this encounter Care Teams Milk Handler Relationship Specialty Start Date End Date Alicia Maldonado MD [address] [place] [phone] PCP - General Internal Medicine 03/12/21 documented as of this encounter
--- OUTSIDE RECORDS SUMMARY | 2025-03-07 07:49 | XMS_ITS | Encounter Summary ---
Author Organization [employer] Address [address] [facility] [address] [place] [address] Care Team Providers Care Micro Computer Data Processor Name Role Phone Alicia Maldonado MD Primary Care Provider [phone] Reason for Referral * Imaging (Routine) - Authorized Specialty Diagnoses / Procedures Referred By Contac t Referred To Contact Radiology Diagnoses Transaminitis Procedures US Abdomen Comp w elastography Alicia Maldonado MD [address] [place] [address] Phone: tel: fax: [address] Phone: tel: fax: Referral ID Status Reason Start Date Expiration Date V isits Requested Visits Authorized [id number] Authorized 01/06/2025 01/06/2026 1 1 Encounter Details Date Type Department Care Team (Late st Contact Info) Description 01/06/2025 Orders Only [facility] [address] [place], [place] [phone] Alicia Maldonado MD [address] [place] [address] Transaminitis (Primary Dx) Social History Tobacco Use [...] Routine Transaminitis Expected: 01/06/2025 (Approximate), Expires: 01/06/2026 Alpha 1 Antitrypsin Lab Routine Transaminitis Expected: 01/06/2025 (Approximate), Expires: 01/06/2026 Hepatitis B Surface Antibody, Qualitative Lab Routine Transaminitis Expected: 01/06/2025 (Approximate), Expires: 01/06/2026 US Abdomen Comp w elastography Imaging Routine Transaminitis Expected: 01/06/2025, Expires: 01/06/2026 documented as of this encounter Procedures Procedure Name Priority Date/Time Associated Diagnosis Comments CHLAMYDIA/TRICHOMONA S/NEISSERIA GONORRHOEAE, PCR, URINE Routine 02/07/2025 10:55 AM EDT Transaminitis HEPATITIS PANEL, GENERAL Routine 02/07/2025 10:48 AM EDT Transaminitis IRON AND TOTAL IRON BINDING CAPACITY Routine 02/07/2025 10:48 AM EDT Transaminitis PROTHROMBIN TIME-INR Routine 02/07/2025 10:48 AM EDT Transaminitis IMMUNOGLOBULINS, QUANTITATIVE, IGA, IGG, IGM Routine 02/07/2025 10:48 AM EDT Transaminitis FERRITIN Routine 02/07/2025 10:48 AM EDT Transaminitis CHLAMYDIA/TRICHOMONA S/NEISSERIA GONORRHOEAE, PCR, URINE Routine 01/06/2025 11:11 AM EDT Transaminitis documented in this encounter Results * Chlamydia/Trichomonas/Neisseria gonorrhoeae, PCR, Urine (02/07/2025 10:55 AM EDT) [facility] CT PCR, Urine NOT DETECTED Not Detect. [facility] Comment:A not detected test result does [...] NG PCR, Urine NOT DETECTED Not Detect. [facility] Comment:A not detected test result does [...] Maldonado MD LAB URINE ORDERABLES Final Result [facility] [address] [place] [phone] * Hepatitis Panel, General (02/07/2025 10:48 AM EDT) Hepatitis A IgM Nonreactive Nonreactive [facility] Comment:IgM antibodies to GUILLEN V not detected; does not exclude earlyacute or recovered HAV infection. ~Hepatitis B Surface Antibody REACTIVE Nonreactive [facility] Comment:REACTIVE: > 11.99 mI U/mL Hepatitis B Core Antibody Nonreactive Nonreactive [facility] Hepatitis C Antibody Nonreactive Nonreactive [facility] Comment:Antibodies to HCV no t detected; does not exclude early acuteHCV infection. Hepatitis B Surface Ag Negative Negative [facility] Blood Venous blood specimen / Unknown 02/07/2025 10:48 AM EDT 02/07/2025 2:14 PM EDT us Alicia Maldonado MD LAB BLOOD ORDERABLES Final Result Performing Organization Address [facility] de Phone Number [facility] [address] [place] [phone] * Iron And Total Iron Binding Capacity (02/07/2025 10:48 AM EDT) Iron 100 45 - 160 mcg/dL [facility] Total Iron Binding Capacity 246 228 - 428 mcg/dL [facility] Percent Iron Saturation 41 15 - 50 % [facility] Unsaturated Iron Binding 146 ug/dL [facility] Blood Venous blood specimen / Unknown 02/07/2025 10:48 AM EDT 02/07/2025 2:14 PM EDT us Alicia Maldonado MD LAB BLOOD ORDERABLES Final Result Performing Organization Address [facility] Phone Number [facility] [address] [place] [phone] * Ferritin (02/07/2025 10:48 AM EDT) Pathologist [facility] Ferritin 108 20 - 250 ng/mL [facility] Blood Venous blood specimen / Unknown 02/07/2025 10:48 AM EDT 02/07/2025 2:14 PM EDT us Alicia Maldonado MD LAB BLOOD ORDERABLES Final Result Performing Organization Address [facility] Co de Phone Number [facility] [address] [place] [phone] * Prothrombin Time-INR (02/07/2025 10:48 AM EDT) Prothrombin Time 11.6 10.9 - 12.4 SEC [facility] INTERNATIONAL NORM RATIO 1.0 0.9 - 1.1 [facility] Comment:INTERNATIONAL NORMAL IZED RATIO (INR) REFERENCE [...] BLOOD ORDERABLES Final Result Performing Organization Address [facility] de Phone Number [facility] [address] [place] [phone] * (ABNORMAL) Immunoglobulins, Quantitative, IgA, IgG, IgM (02/07/2025 10:48 AM EDT) IMMUNOGLOBULIN G 1534 600 - 1640 mg/dL [facility] IMMUNOGLOBULIN A 362(A) 47 - 310 mg/dL [facility] Immunoglobulin M 194 50 - 300 mg/dL [facility] Comment:THIS TEST WAS PERFOR MED AT:[employer] [address] [phone] HENSON MD Blood Venous blood specimen / Unknown 02/07/2025 10:48 AM EDT 02/07/2025 2:14 PM EDT Alicia Maldonado MD LAB BLOOD ORDERABLES Final Result Performing Organization Address [facility] Co de Phone Number [facility] [address] [place] [phone] * Chlamydia/Trichomonas/Neisseria gonorrhoeae, PCR, Urine (01/06/2025 11:11 AM EDT) CT PCR, Urine NOT DETECTED Not Detect. [facility] Comment:A not detected test result does [...] NG PCR, Urine NOT DETECTED Not Detect. [facility] Comment:A not detected test result does [...] Maldonado MD LAB URINE ORDERABLES Final Result [facility] [address] [place] [phone] documented in this encounter Visit Diagnoses Diagnosis Transaminitis- Primary Nonspecific elevation of levels of transaminase or lactic acid dehydrogenase (LDH) documented in this encounter Additional Health Concerns Assessment Noted Time PHQ-9 Depression Total Score: 6 01/07/20 25 10:51 AM EDT documented as of this encounter Care Teams Micro Computer Data Processor Relationship Specialty Start Date End Date Alicia Maldonado MD [address] [place] [phone] PCP - General Internal Medicine 03/12/21 documented as of this encounter
== END 2025-03-07 07:47 | disposition home or self-care (01) ==
LOC: HO.US 07:46
PROVIDERS: PCP Internal Medicine; Visit Provider Internal Medicine
DX: R74.01 Elevation of levels of liver transaminase levels (principal)
CPT/HCPCS: 76700; 76981

== ENCOUNTER → 2025-03-07 07:46 | Outpatient (BNV) | payer OTHER, SELFPAY | PROVIDERS: PCP Internal Medicine; Visit Provider Radiology Diagnostic Radiology | DX: R16.0 Hepatomegaly, not elsewhere classified (principal) | CPT/HCPCS: 76700 ==

== ENCOUNTER 2025-03-15 14:19 | Outpatient (AMB) | payer OTHER, SELFPAY ==
--- NOTE | 2025-03-15 14:23 | MHC.OFFVIS ---
Vital Signs 03/15/25 14:29 Height 5 ft 8 in Weight 207 lb BMI 31.5 BP 140/80 H Blood Pressure Location Rt brachial Position Sitting Pulse 114 H Pulse Source Pulse Oximeter Pulse Oximetry (%) 99 Oxygen Delivery Method Room Air Intake Visit Reasons: Chronic liver abnormality. Pt req appt Intake Note: Est pt for mgmt of liver abnormalities. LE 2022. CC: Pt denies any GI sx at this time but does have concerns regarding his recent labs from last month. [facility] Required: No Accompanied by: Self / Same As Patient Allergies cat dander Allergy (Mild, Verified 06/18/22 15:07) Unknown house dust Allergy (Mild, Verified 06/18/22 15:07) Unknown HPI HPI Chronic liver abnormality. Pt req appt: Details: LAST VISIT: 06/18/2022 IBS (irritable bowel syndrome) Discussed with patient the importance of following low FODMAP diet. Avoid dietary triggers like lactose. Food that is fried or high in fat. Patient denies abdominal pain, however feels postprandial bloating and occasional loose stools. Will check for pancreatic insufficiency will do CMP, CRP, lipase and check vitamin-D levels again. Patient request and list of food recommendations and food that he needs to avoid. List provided to patient. Abdominal bloating Postprandial abdominal bloating. Avoiding dietary triggers was recommended to patient. I recommended to patient trying to take Calm (contains 325 mg of magnesium her 1 serving size) at bedtime to help him relax and also will help him move his bowels better. Education about diet provided to patient. I will see patient in 4 months, sooner on as needed basis. Patient is agreeable to this plan and verbalizes understanding of instructions. He was given the opportunity to ask questions and all questions answered. ? Thank you for allowing me to participate in his care Plan Orders Orders Pancreatic Elastase-1 Today R10.9 Comprehensive Met. Panel Today K21.9 C Reactive Protein Today K58.9 Lipase Today R10.9 Vitamin D 25-OH (D2 and D3) Today E55.9 Complete Blood Count no Diff Today K21.9 TODAY'S VISIT: Patient is here today for requested visit. Patient reports that he is very concerned about his lab results and ultrasound results. Patient had elevated liver enzymes and ultrasound report said that patient has advanced chronic liver disease. Patient is very worry about it. Patient denies drinking alcohol excessively. In the past 3 years patient gained about 50 lbs. Patient does admit that his diet not always consist of healthy choices. Patient denies any GI concerning symptoms at this time. Occasional abdominal bloating depending on what he eats. Otherwise patient reports that he has been doing fairly well. [facility] Medical History (Updated 03/15/25 @ 14:58 by Laurie Rosen [facility]) Transaminitis Asthma Surgical History Hx of LASIK Family History Maternal Grandmother Diabetes Maternal Grandfather Colon cancer Review of Systems Const Denies weight gain and Denies weight loss ENT Reports no additional complaints, Denies dysphagia and Denies odynophagia Card Reports no additional complaints Resp Reports no additional complaints GI Reports abdominal pain, Denies belching, Denies melena, Reports bloating, Denies change in bowel habits, Denies dysphagia, Denies excessive flatus, Denies dyspepsia, Denies heartburn, Denies diarrhea, Denies loose stools, Denies nausea, Denies odynophagia and Denies vomiting Reports no additional complaints Musc Reports no additional complaints Neuro Reports no additional complaints Psych Reports no additional complaints Endo Reports no additional complaints Physical Exam Vital Signs: Last Vital Signs Pulse 114 H 03/15/25 14:29 BP 140/80 H 03/15/25 14:29 Pulse Ox 99 03/15/25 14:29 Oxygen Delivery Method Room Air 03/15/25 14:29 BMI result Body Mass Index 31.5 Const General: healthy appearing, no acute distress and well developed Nutritional Appearance: well nourished Orientation/consciousness: patient oriented x3 HEENT Head: Yes normal to inspection, Yes normocephalic and Yes atraumatic Face and sinus: Yes normal facial exam Mouth: Normal oral and palatal mucosa present Throat: Yes posterior oropharynx normal, Yes tonsils normal and Yes uvula midline Eyes General: appearance normal, both eyes and all related structures Neck Neck: Yes normal visual inspection, Yes full ROM and Yes trachea midline Thyroid: Thyroid normal Resp Effort & Inspection: normal respiratory effort, able to speak in complete sentences, no tracheal deviation and symmetric chest movement Auscultation: clear to auscultation bilaterally Cardio Rate: regular rate Heart sounds: S1 normal heart sound present, S2 normal heart sound present, no gallops and no murmurs GI Inspection: Yes normal to inspection, No distended and Yes obesity Palpation (GI): Soft to palpation, not firm, nontender and No hepatosplenomegaly present Auscultation: Hyperactive bowel sounds present General: Yes no CVA tenderness Back/Spine/Pelvis Back: no CVA tenderness Skin General skin exam: elasticity normal, turgor normal and dry skin Neuro General: patient oriented x3 Psych Appearance: grossly normal Mental Status: mental status grossly normal Speech and movement: Normal speech and movement present Affect: normal affect Attitude: cooperative Thought process: Normal thought process present Thought content: Normal thought content present Insight: Good insight present (Psych) Judgement: Good judgement present (Psych) Results Reviewed Results Reviewed: FIB 4 score 0.61?points Use alternative fibrosis assessment Approximate fibrosis stage: Harjit 0-1 (Chris et al 2006) Laboratory Tests 01/06/25 11:40 Total Bilirubin 0.8 AST 39 H ALT 47 H Alkaline Phosphatase 105 ABDOMINAL ULTRASOUND WITH LIVER ELASTOGRAPHY 03/07/2025 IMPRESSION: Enlarged left lobe of the liver. The median shear wave velocity in the liver is 1.71 m/s, corresponding to a median liver stiffness of 8.94 kPa. The IQR/median value is 0.02. This is indicative of a quality data set. Findings are indicative of a high elastography value indicating advanced chronic liver disease. Assessment & Plan Assessment & Plan (1) Transaminitis: Code(s): R74.01 - Elevation of levels of liver transaminase levels Category: Medical (2) NAFL (nonalcoholic fatty liver): Code(s): K76.0 - Fatty (change of) liver, not elsewhere classified Plan Long discussion with patient about dietary choices. Discussed with patient following low-fat, low carb, low-salt and high-protein diet. Weight loss and exercise also recommended. However we will rule out any autoimmune disorders. Patient will follow-up in 6 months, sooner on as needed basis. He is agreeable to this plan and verbalizes understanding of instructions. He was given the opportunity to ask questions and all questions answered. Thank you for allowing me to participate in his care Orders: Orders Ceruloplasmin 03/15/25 R79.89 - Other specified abnormal findings of blood chemistry Liver Panel 03/15/25 R74.01 - Elevation of levels of liver transaminase levels Platelet Count 03/15/25 R74.01 - Elevation of levels of liver transaminase levels C Reactive Protein 03/15/25 K58.9 - Irritable bowel syndrome, unspecified Liver Fibrosis Pnl 03/15/25 K76.0 - Fatty (change of) liver, not elsewhere classified Alpha Fetoprotein 03/15/25 R7.89 - Other specified abnormal findings of blood chemistry Gamma Glutamyl Transpeptidase 03/15/25 R74.8 - Abnormal levels of other serum enzymes Mitochondrial Antibody 03/15/25 R79.89 - Other specified abnormal findings of blood chemistry Smooth Muscle Antibody 03/15/25 R79.89 - Other specified abnormal findings of blood chemistry GUY Reflex Titer and Pattern 03/15/25 R74.8 - Abnormal levels of other serum enzymes Coding Level of Care Code Est Pt Level 4 (01331) Complex visit Add On G2211 Diagnoses Transaminitis R74.01 NAFL (nonalcoholic fatty liver) K76.0 Time Spent (min) 40 Comment 30 minutes spent with patient and additional 10 minutes spent reviewing his records
[2025-03-15 14:29] VITALS: BP 140/80; PULSE 114; O2SAT 99; BMI 31.5
--- OUTSIDE RECORDS SUMMARY | 2025-03-15 18:40 | XMS_ITS | Clinical Summary ---
Author Organization [employer] Address [address] [facility] [address] [place] [address] Care Team Providers Care Slab Worker Name Role Phone Alicia Maldonado MD Primary Care Provider [phone] Allergies No known active allergies Medications ibuprofen [...] Encounters Date Type Department Care Team Description 03/15/2025 Orders Only GENERIC EXTERNAL DATA DEPARTMENT Provider, Generic External Data 03/10/2025 Telephone [facility] [address] [place] [address] Alicia Maldonado MD 03/07/2025 Orders Only [facility] [address] [facility] [place] [address] Alicia Maldonado MD Chronic liver disease (Primary Dx) 02/07/2025 10:45 AM EDT Immunization [facility] [address] [facility] [place] [address] 02/07/2025 Results Follow-Up [facility] [address] [place] [address] Alicia Maldonado MD Prothrombin Time-INR, Ferritin, Iron And Total Iron Binding Capacity, Additional followed-up results: 5 02/07/2025 Travel 01/31/2025 Travel 01/07/2025 Results Follow-Up [facility] [address] [place] [phone] Wing Alaina, NELA CBC auto differential, Comprehensive Metabolic Panel, Lipid Panel, Standard, TSH with Reflex to Free T4 01/06/2025 10:45 AM EDT Office Visit [facility] [address] [place] [address] Alicia Maldonado MD Annual physical exam (Primary Dx); Chronic right-sided low back pain without sciatica; Other specified anxiety disorders; Dietary counseling; Exercise counseling; Class 1 obesity due to excess calories without serious comorbidity with body mass index (BMI) of 33.0 to 33.9 in adult; Impacted cerumen of right ear; Encounter for immunization 01/06/2025 Orders Only [facility] [address] [place] [address] Alicia Maldonado MD Transaminitis (Primary Dx) 01/06/2025 Patient Outreach [facility] [address] [place] [phone] Alicia Maldonado MD Care Coordination (CHW outreach for SDOH food needs-referral completed /) 01/06/2025 Travel 01/05/2025 Telephone [facility] [address] [place] [address] Alicia Maldonado MD Chart Prep 12/31/2024 Travel 12/29/2024 Patient Outreach [facility] [address] [place] [phone] Alicia Maldonado MD Pre-visit Planning (Pre visit planning LVM ) from Last 3 Months Immunizations Immunization Administration Dates Next Due HepB-CpG 01/06/2025 Pneumococcal Conjugate PCV 20 01/06/2025 Tdap 01/06/2025 Family History Medical History Relation Name Comments Colon cancer Maternal Grandfather Liver cancer Maternal Grandfather Lung cancer Maternal Grandfather Diabetes type II Maternal Grandmother Colon cancer Paternal Grandmother Lung cancer Paternal Grandmother Relation Name Status Comments Maternal Grandfather Maternal Grandmother Paternal Grandmother Social History Tobacco [...] Last Done Comments Family Planning (PISQ) 11/23/2006 Hepatitis A Vaccines (1 of 2 - Risk 2-dose series) 11/23/2010 HPV Vaccines (2 - Male 3-dose series) 04/06/2022 03/09/2022 SDOH Screening 07/19/2023 07/18/2022 COVID-19 Vaccine ( season) 2025 03/09/2022, 06/08/2021, 11/13/2020, Additional history [...] Procedure Name Priority Date/Time Associated Diagnosis Comments C-REACTIVE PROTEIN Routine 03/15/2025 3: 28 PM EDT HEPATIC FUNCTION PANEL Routine 3:28 PM EDT PLATELET COUNT Routine 03/15/2025 3:28 PM EDT US ABDOMEN COMPLETE WITH ELASTOGRAPHY Routine 03/07/2025 8:15 AM EDT Transaminitis CHLAMYDIA/TRICHOMONAS/ NEISSERIA GONORRHOEAE, PCR, URINE Routine 02/07/2025 [...] exam from Last 3 Months Results * Platelet Count (03/15/2025 3:28 PM EDT) Platelet Count 301 160 - 400 X10*3/uL [facility] 03/15/2025 3:28 PM EDT 03/15/2025 3:28 PM EDT us Generic External Data Provider LAB BLOOD ORDERAB LES Final Result Performing Organization Address City/State/[facility] Co de Phone Number [facility] [address] [place] [phone] * US Abdomen Comp w elastography (03/07/2025 8:15 AM EDT) Anatomical Region Laterality Modality Abdomen Ultrasound 03/07/2025 8:15 AM EDT Narrative 03/07/2025 8:57 AM EDT [address] [address] Ultrasound Report Signed Patient: Eric Lanier MR#: [id number] 2 : 1990 Acct:[id number] Age/Sex: 34 / M ADM Date: 03/07/25 Loc: HO.US Attending Dr: Alicia Maldonado MD Ordering Physician: Alicia Maldonado MD Date of Service: 03/07/25 Procedure(s): US abdomen comp w elastography Accession Number(s): [id number] cc: Alicia Maldonado MD Reason for Exam: Transaminitis EXAMINATION: US ABDOMEN COMPLETE WITH LIVER ELASTOGRAPHY HISTORY: Transaminitis TECHNIQUE: Real-time grayscale ultrasound imaging of the abdomen was performed and images were reviewed. COMPARISON: There are no prior studies available for comparison. FINDINGS: Liver: The right lobe of the liver measures 8.9 cm in size. The left lobe of the liver measures 14.2 cm in size. The liver demonstrates normal homogeneous echotexture. No focal mass or intrahepatic biliary ductal dilatation is identified. There is normal hepatopedal flow in the portal vein. Ultrasound elastography of the liver was performed with 10 separate measurements of the liver parenchyma with the patient in the supine position. Measurements were obtained approximately 2 cm below Talia's capsule and perpendicular to the capsule. The median shear wave velocity is 1.71 m/s. The interquartile range/median (IQR/median) is 0.02. Gallbladder and biliary tree: There is a gallbladder polyp measuring up to 5 mm in size. The gallbladder is otherwise unremarkable, without evidence of calculi, wall thickening, or pericholecystic fluid. There is no sonographic Carreno sign. The common bile duct is normal in caliber measuring 4 mm. Kidneys: The right kidney measures 10.8 cm in length. The left kidney measures 11.7 cm in length. The kidneys are unremarkable, without evidence of masses, hydronephrosis, or calculi. Pancreas: The pancreas is obscured by bowel gas. Spleen: The spleen is normal in size and contour, measuring 11.0 cm in length. Abdominal aorta and inferior vena cava: The visualized portions of the abdominal aorta and inferior vena cava are normal in caliber. There is no free fluid in the abdomen. US/US abdomen comp w elastography IMPRESSION: Enlarged left lobe of the liver. The median shear wave velocity in the liver is 1.71 m/s, corresponding to a median liver stiffness of 8.94 kPa. The IQR/median value is 0.02. This is indicative of a quality data set. Findings are indicative of a high elastography value indicating advanced chronic liver disease. REFERENCE: Society of Radiologists in Ultrasound Liver Stiffness Thresholds (2020): LIVER STIFFNESS THRESHOLDS: *Shear wave velocity less than 1.3 m/s (Liver Stiffness equal or less than 5 kPa): High probability of being normal. *Shear wave velocity less than 1.7 m/s (Liver Stiffness less than 9 kPa): In the absence of other known clinical signs, rules out compensated advanced chronic liver disease. *Shear wave velocity between 1.7-2.1 m/s (Liver Stiffness 9-13 kPa): Suggestive of compensated advanced chronic liver disease but need further test for confirmation. *Shear wave velocity between 2.1-2.4 m/s (Liver Stiffness 13-17 kPa): Rules in compensated advanced chronic liver disease. *Shear wave velocity greater than 2.4 m/s (Liver Stiffness over 17 kPa): Suggestive of clinically significant portal hypertension. QUALITY OF DATA SET: *IQR/Median value equal or less than 0.15 implies a quality data set. *IQR/Median value over 0.15 implies a poor quality data set. SIGNIFICANT CHANGE FROM PRIOR EXAM: Significant change if liver stiffness measurement is 10% or greater from prior exam. OTHER CONSIDERATIONS: The stage of liver fibrosis may be overestimated in the setting of acute hepatitis, liver inflammation, elevated liver function tests, hepatic vascular congestion, obstructive cholestasis, non-fasting state, and infiltrative diseases such as amyloidosis and lymphoma. In some patients with NAFLD, the liver stiffness thresholds for compensated advanced chronic liver disease may be lower. In causes other than viral hepatitis and NAFLD, liver stiffness thresholds are not well established. Electronically signed by: Ranjeet Olvera MD 03/07/2025 08:54 AM EDT Dictated By: Ranjeet Olvera MD Signed By: <Electronically signed by Ranjeet Olvera MD in OV> 03/07/2554 DD/ 4 TD/TT: 03/07/25834 Clamp Carrier Operator: Procedure Note Donotuseinterpreter, Image - 03/07/[address] [address] Ultrasound Report Signed Patient: Eric LanierMR#: [id number] 2 : 1990Acct:[id number] Age/Sex: 34 / MADM Date: 03/07/25 Loc: HO.US Attending Dr: Alicia Maldonado MD Ordering Physician: Alicia Maldonado MD Date of Service: 03/07/25 Procedure(s): US abdomen comp w elastography Accession Number(s): [id number] cc: Alicia Maldonado MD Reason for Exam: Transaminitis EXAMINATION: US ABDOMEN COMPLETE WITH LIVER ELASTOGRAPHY HISTORY: Transaminitis TECHNIQUE: Real-time grayscale ultrasound imaging of the abdomen was performed and images were reviewed. COMPARISON: There are no prior studies available for comparison. FINDINGS: Liver: The right lobe of the liver measures 8.9 cm in size. The left lobe of the liver measures 14.2 cm in size. The liver demonstrates normal homogeneous echotexture. No focal mass or intrahepatic biliary ductal dilatation is identified. There is normal hepatopedal flow in the portal vein. Ultrasound elastography of the liver was performed with 10 separate measurements of the liver parenchyma with the patient in the supine position. Measurements were obtained approximately 2 cm below Talia's capsule and perpendicular to the capsule. The median shear wave velocity is 1.71 m/s. The interquartile range/median (IQR/median) is 0.02. Gallbladder and biliary tree: There is a gallbladder polyp measuring up to 5 mm in size. The gallbladder is otherwise unremarkable, without evidence of calculi, wall thickening, or pericholecystic fluid. There is no sonographic Carreno sign. The common bile duct is normal in caliber measuring 4 mm. Kidneys: The right kidney measures 10.8 cm in length. The left kidney measures 11.7 cm in length. The kidneys are unremarkable, without evidence of masses, hydronephrosis, or calculi. Pancreas: The pancreas is obscured by bowel gas. Spleen: The spleen is normal in size and contour, measuring 11.0 cm in length. Abdominal aorta and inferior vena cava: The visualized portions of the abdominal aorta and inferior vena cava are normal in caliber. There is no free fluid in the abdomen. US/US abdomen comp w elastography IMPRESSION: Enlarged left lobe of the liver. The median shear wave velocity in the liver is 1.71 m/s, corresponding to a median liver stiffness of 8.94 kPa. The IQR/median value is 0.02. This is indicative of a quality data set. Findings are indicative of a high elastography value indicating advanced chronic liver disease. REFERENCE: Society of Radiologists in Ultrasound Liver Stiffness Thresholds (2019): LIVER STIFFNESS THRESHOLDS: *Shear wave velocity less than 1.3 m/s (Liver Stiffness equal or less than 5 kPa): High probability of being normal. *Shear wave velocity less than 1.7 m/s (Liver Stiffness less than 9 kPa): In the absence of other known clinical signs, rules out compensated advanced chronic liver disease. *Shear wave velocity between 1.7-2.1 m/s (Liver Stiffness 9-13 kPa): Suggestive of compensated advanced chronic liver disease but need further test for confirmation. *Shear wave velocity between 2.1-2.4 m/s (Liver Stiffness 13-17 kPa): Rules in compensated advanced chronic liver disease. *Shear wave velocity greater than 2.4 m/s (Liver Stiffness over 17 kPa): Suggestive of clinically significant portal hypertension. QUALITY OF DATA SET: *IQR/Median value equal or less than 0.15 implies a quality data set. *IQR/Median value over 0.15 implies a poor quality data set. SIGNIFICANT CHANGE FROM PRIOR EXAM: Significant change if liver stiffness measurement is 10% or greater from prior exam. OTHER CONSIDERATIONS: The stage of liver fibrosis may be overestimated in the setting of acute hepatitis, liver inflammation, elevated liver function tests, hepatic vascular congestion, obstructive cholestasis, non-fasting state, and infiltrative diseases such as amyloidosis and lymphoma. In some patients with NAFLD, the liver stiffness thresholds for compensated advanced chronic liver disease may be lower. In causes other than viral hepatitis and NAFLD, liver stiffness thresholds are not well established. Electronically signed by: Ranjeet Olvera MD 03/07/2025 08:54 AM EDT Dictated By: Ranjeet Olvera MD Signed By: <Electronically signed by Ranjeet Olvera MD in OV> 03/07/25 0854 DD/ TD/TT: 03/07/2535 Clamp Carrier Operator: us Alicia Maldonado MD IMG US PROCEDURES Edited Re sult - Final * Chlamydia/Trichomonas/Neisseria gonorrhoeae, PCR, Urine (02/07/2025 10:55 AM EDT) Only the most recent of2 resultswithin the time period is included. CT PCR, Urine NOT DETECTED Not Detect. [facility] Comment:A not detected test result [...] NG PCR, Urine NOT DETECTED Not Detect. [facility] Comment:A not detected test result [...] Maldonado MD LAB URINE ORDERABLES Final Result [facility] [address] [place] [phone] * Hepatitis Panel, General (02/07/2025 10:48 AM EDT) Hepatitis A IgM Nonreactive Nonreactive [facility] Comment:IgM antibodies to GUILLEN V not detected; does not exclude earlyacute or recovered HAV infection. ~Hepatitis B Surface Antibody REACTIVE Nonreactive [facility] Comment:REACTIVE: > 11.99 mI U/mL Hepatitis B Core Antibody Nonreactive Nonreactive [facility] Hepatitis C Antibody Nonreactive Nonreactive [facility] Comment:Antibodies to HCV no t detected; does not exclude early acuteHCV infection. Hepatitis B Surface Ag Negative Negative [facility] Blood Venous blood specimen / Unknown 02/07/2025 10:48 AM EDT 02/07/2025 2:14 PM EDT us Alicia Maldonado MD LAB BLOOD ORDERABLES Final Result Performing Organization Address [facility] Co de Phone Number [facility] [address] [place] [phone] * Iron And Total Iron Binding Capacity (02/07/2025 10:48 AM EDT) Pathologist [facility] Iron 100 45 - 160 mcg/dL [facility] Total Iron Binding Capacity 246 228 - 428 mcg/dL [facility] Percent Iron Saturation 41 15 - 50 % [facility] Unsaturated Iron Binding 146 ug/dL [facility] Blood Venous blood specimen / Unknown 02/07/2025 10:48 AM EDT 02/07/2025 2:14 PM EDT us Alicia Maldonado MD LAB BLOOD ORDERABLES Final Result Performing Organization Address City/[facility] Co de Phone Number [facility] [address] [place] [phone] * Prothrombin Time-INR (02/07/2025 10:48 AM EDT) Pathologist [facility] Prothrombin Time 11.6 10.9 - 12.4 SEC [facility] INTERNATIONAL NORM RATIO 1.0 0.9 - 1.1 [facility] Comment:INTERNATIONAL NORMAL IZED RATIO (INR) [...] BLOOD ORDERABLES Final Result Performing Organization Address [facility] Phone Number [facility] [address] [place] [phone] * (ABNORMAL) Immunoglobulins, Quantitative, IgA, IgG, IgM (02/07/2025 10:48 AM EDT) IMMUNOGLOBULIN G 1534 600 - 1640 mg/dL [facility] IMMUNOGLOBULIN A 362(A) 47 - 310 mg/dL [facility] Immunoglobulin M 194 50 - 300 mg/dL [facility] Comment:THIS TEST WAS PERFOR MED AT:[facility] [address] [id number] HENSON MD Blood Venous blood specimen / Unknown 02/07/2025 10:48 AM EDT 02/07/2025 2:14 PM EDT us Alicia Maldonado MD LAB BLOOD ORDERABLES Final Result Performing Organization Address [facility] de Phone Number [facility] [address] [place] [phone] * Ferritin (02/07/2025 10:48 AM EDT) Ferritin 108 20 - 250 ng/mL [facility] Blood Venous blood specimen / Unknown 02/07/2025 10:48 AM EDT 02/07/2025 2:14 PM EDT Alicia Maldonado MD LAB BLOOD ORDERABLES Final Result Performing Organization Address [facility]/ZIP Co de Phone Number [facility] [address] [place] [phone] * TSH with Reflex to Free T4 (01/06/2025 11:40 AM EDT) Pathologist [facility] TSH reflex Free T4 1.23 0.32 - 4.0 uIU/mL [facility] Blood Venous blood specimen / Unknown 01/06/2025 11:40 AM EDT 01/06/2025 2:27 PM EDT Alicia Maldonado MD LAB BLOOD ORDERABLES Final Result Performing Organization Address City/[facility] Co de Phone Number [facility] [address] [place] [phone] * (ABNORMAL) CBC auto differential (01/06/2025 11:40 AM EDT) Pathologist [facility] White Blood Count 7.3 4.8 - 10.8 X10*3/uL [facility] Red Blood Count 4.85 4.60 - 5.80 X10*6/uL [facility] Hemoglobin 14.7 14.0 - 18.0 g/dl [facility] Hematocrit 41.5(L) 42.0 - 52.0 % [facility] Mean Corpuscular Volume 85.6 80.0 - 98.0 fL [facility] Mean Corpuscular Hemoglobin 30.3 27.0 - 33.0 pg [facility] Mean Corpuscular HGB Conc 35.4 31.0 - 36.0 g/dl [facility] Red Cell Distribution Width 12.3 11.0 - 16.0 % [facility] Platelet Count 308 160 - 400 X10*3/uL [facility] Mean Platelet Volume 10.4 9.4 - 12.4 fL [facility] Neutrophils Percent Auto 54.6 45 - 73 % [facility] Imm Gran Pct Auto 0.3 0.0 - 0.4 % [facility] Lymphocytes Percent Auto 36.0 20 - 40 % [facility] Monocytes Percent Auto 6.8 2 - 11 % [facility] Eosinophils Percent Auto 1.6 0 - 4 % [facility] Basophils Percent Auto 0.7 0 - 2 % [facility] NRBC Pct Auto 0.0 0.0 - 0.2 /100WBC [facility] Neutrophils Absolute Auto 4.0 2.0 - 8.3 x10*3/uL [facility] Imm Gran Abs Auto 0.02 0.00 - 0.03 X10*3/uL [facility] Lymphocytes Absolute Auto 2.6 1.2 - 4.9 X10*3/uL [facility] Monocytes Absolute Auto 0.5 0.1 - 1.2 X10*3/uL [facility] Eosinophils Absolute Auto 0.1 0.0 - 0.4 X10*3/uL [facility] Basophils Absolute Auto 0.1 0.0 - 0.2 X10*3/uL [facility] NRBC Abs Auto 0.000 0.0 - 0.012 X10*3/uL [facility] Blood Venous blood specimen / Unknown 01/06/2025 11:40 AM EDT 01/06/2025 2:27 PM EDT us Alicia Maldonado MD LAB BLOOD ORDERABLES Final Result [facility] [address] [place], [place] [phone] * Hepatitis C Antibody with Reflex to HCV, RNA, Quantitative, Real-Time PCR (01/06/2025 11:40 AM EDT) Hepatitis C Antibody Nonreactive Nonreactive [facility] Comment:Antibodies to HCV no t detected; does not exclude early acuteHCV infection. Blood Venous blood specimen / Unknown 01/06/2025 11:40 AM EDT 01/06/2025 2:27 PM EDT us Alicia Maldonado MD LAB BLOOD ORDERABLES Final Result Performing Organization Address [facility] Co de Phone Number [facility] [address] [place] [phone] * RPR (Monitor) with Reflex to??Titer (01/06/2025 11:40 AM EDT) RPR (Monitor) w/Refl Titer NON-REACTI VE NON-REACT [facility] Comment:THIS TEST WAS PERFOR MED AT:[facility] [place] [id number] HENSON MD Rapid Plasma Reagin Ab Titer TNP [facility] Blood Venous blood specimen / Unknown 01/06/2025 11:40 AM EDT 01/06/2025 2:27 PM EDT us Alicia Maldonado MD LAB BLOOD ORDERABLES Final Result Performing Organization Address [facility] Co de Phone Number [facility] [address] [place] [phone] * HIV-1/2 Antigen and Antibodies, Fourth Generation, with Reflexes (01/06/2025 11:40 AM EDT) HIV AB/AG Nonreactive Nonreactive [facility] Comment:HIV-1 p24 Ag and/or HIV-1/HIV-2 Ab not detected.A test result that is nonreactive does not exclude thepossibility of exposure to or infection with HIV-1 and/orHIV-2. Nonreactive results in this assay for individualswith prior exposure to HIV-1 and/or HIV-2 may be due toantigen and antibody levels that are below the limit ofdetection of this assay.The Ajaline HIV Ag/Ab Combo assay result andsupplemental assay results should be interpreted inconjunction with the patient's clinical presentation,history and other laboratory results. If the results areinconsistent with clinical evidence, additional testing issuggested to confirm the result. Blood Venous blood specimen / Unknown 01/06/2025 11:40 AM EDT 01/06/2025 2:27 PM EDT us Alicia Maldonado MD LAB BLOOD ORDERABLES Final Result Performing Organization Address City/[facility] Co de Phone Number [facility] [address] [place] [address] [phone] * (ABNORMAL) Lipid Panel, Standard (01/06/2025 11:40 AM EDT) Triglycerides 164(H) <150 mg/dL [facility] Comment:Desirable Triglyceri de: less than 150 mg/dLBorderline High Triglyceride 150-199 mg/dLHigh Triglyceride: 200-499 mg/dLVery High Triglyceride: greater than or equal to 5OO mg/dL Cholesterol 194 <200 mg/dL [facility] Comment:Desirable Cholestero l: less than 200 mg/dLBorderline High Cholesterol: 200-239 mg/dLHigh Cholesterol: greater than 239 mg/dL LDL Cholesterol Calculated 118(H) <100 mg/dL [facility] Comment:Desirable LDL: less than 100 mg/dLNear Optimal/Above Optimal LDL: 110- 129 mg/dLBorderline High LDL: 130-159 mg/dLHigh LDL: 160-189 mg/dLVery High LDL: greater than or equal to 190 mg/dL HDL Cholesterol 44 >40 mg/dL [facility] Comment:Desirable HDL: great er than 40 mg/dL Note: This HDL assay may give artificially low results in patients with liver disease. Blood Venous blood specimen / Unknown 01/06/2025 11:40 AM EDT 01/06/2025 2:27 PM EDT us Alicia Maldonado MD LAB BLOOD ORDERABLES Final Result [facility] [address] [place] [phone] * (ABNORMAL) Comprehensive Metabolic Panel (01/06/2025 11:40 AM EDT) Sodium 139 135 - 145 mmol/L [facility] Potassium 4.0 3.3 - 5.1 mmol/L [facility] Chloride 105 96 - 108 mmol/L [facility] Carbon Dioxide 26 22 - 29 mmol/L [facility] Anion Gap 12 12 - 20 [facility] Urea Nitrogen (BUN) 16 9 - 16 mg/dL [facility] Creatinine, Serum 1.12 0.5 - 1.4 mg/dL [facility] Estimated Glomerular Filt Rate >60 [facility] Comment:Chronic Kidney Disea se: Estimated GFR < 60 mL/min/1.78y6Lscglp Kidney Disease: Estimated GFR < 15 mL/min/1.73m2 Glucose 89 60 - 115 mg/dL [facility] Calcium 9.9 8.4 - 10.2 mg/dL [facility] Bilirubin, Total 0.8 0.0 - 1.0 mg/dL [facility] Aspartate Amino Transferase 39(H) 5 - 37 U/L [facility] Alanine Aminotransferase 47(H) 0 - 40 U/L [facility] Total Protein 8.1(H) 6.5 - 8.0 g/dL [facility] Albumin Level 4.8 3.5 - 5.0 g/dL [facility] Alkaline Phosphatase 105 39 - 117 U/L [facility] Blood Venous blood specimen / Unknown 01/06/2025 11:40 AM EDT 01/06/2025 2:27 PM EDT us Alicia Maldonado MD LAB BLOOD ORDERABLES Final Result Performing Organization Address [facility] [facility]/ZIP Co de Phone Number [facility] [address] [place] [address] [phone] * Urinalysis w/reflex microscopic (01/06/2025 11:11 AM EDT) Color Urine Yellow [facility] Appearance Urine Clear [facility] PH 8.5 5.0 - 9.0 [facility] Glucose Urine UA Negative Negative mg/dL [facility] Urine Blood Negative Negative [facility] Specific [place] - Urine 1.015 1.005 - 1.025 [facility] Urine Protein Negative Neg-Trace mg/dL [facility] Urine Ketones Negative Negative mg/dL [facility] Nitrite Urine Negative Negative [facility] Leukocyte Esterase Urine Negative Negative [facility] Urine (Urine, Random) 01/06/2025 11:11 AM EDT 01/06/2025 5:34 PM EDT Narrative [facility] - 01/06/2025 5:42 PM EDT [id number], Clean Catch us Alicia Maldonado MD LAB URINE ORDERABLES Final Result [facility] [address] [place] [phone] [phone] from Last 3 Months Insurance [facility] [place] [id number] Care Teams Slab Worker Relationship Specialty Start Date End Date Alicia Maldonado MD [address] [place] [address] [place] [address] PCP - General Internal Medicine 03/12/21
--- OUTSIDE RECORDS SUMMARY | 2025-03-15 18:40 | XMS_ITS | Encounter Summary ---
Author Organization [employer] Address 75 [facility] 7 [place] [address] Care Team Providers Care Respiratory Care Specialist Name Role Phone Alicia Maldonado MD Primary Care Provider +1- [phone] Encounter Details Date Type Department Care Team ([facility] st Contact Info) Description 02/07/2025 Results Follow-Up [facility] CHC MED & PEDS [address] [place], [place] [phone] Alicia Maldonado MD [address] [place] [address] Prothrombin Time-INR, Ferritin, Iron And Total Iron Binding Capacity, Additional followed-up results: 5 Social History Tobacco Use Types Packs/Day Years [...] as of this encounter Miscellaneous Notes * Result Encounter Note - Alicia Maldonado MD - 03/07/2025 9:44 AM EDT Please call Mr. Eric Lanier to inform him that he has an enlarged left lobe of the liver with therest of the test abnormal compatible with chronic liver disease. He needs to see a leaf coverer to consider further evaluation and recommendations. Please advise him to continue with his efforts to lose weight in the meantime. documented in this encounter Plan of Treatment Not on file documented as of this encounter Visit Diagnoses Not on filedocumented in this encounter Additional Health Concerns Assessment Noted Time PHQ-9 Depression Total Score: 6 01/07/20 10:51 AM EDT documented as of this encounter Care Teams Respiratory Care Specialist Relationship Specialty Start Date End Date Alicia Malodnado MD [address] [place] [phone] PCP - General Internal Medicine 03/12/21 documented as of this encounter
--- OUTSIDE RECORDS SUMMARY | 2025-03-15 18:40 | XMS_ITS | Encounter Summary ---
Author Organization [employer] Address 75 [facility] 7 [place] [address] Care Team Providers Care Car Sales Consultant Name Role Phone Alicia Maldonado MD Primary Care Provider +1- [phone] Reason for Visit * Reason Onset Date Comments ER Follow-up 11/10/2023 Nurse Triage 11/10/2023 Encounter Details Date Type Department Care Team (Late st Contact Info) Description 11/10/2023 Telephone [facility] MEDICINE [address] [place] [address] Alicia Maldonado MD [address] [place], [place] [phone] ER Follow-up; Nurse Triage Social History Tobacco [...] Triage call Pt reports being seen in [facility] ED on 11/09/23, for symptoms of [...] Pt has had change in insurance to [facility]. Pt is advised to call [facility] and update insurance information. Pt agrees [...] ED visit on : Date: 11/08 Hospital: [facility] Seen for: Chest Pain Patient advised [...] documented as of this encounter Care Teams Car Sales Consultant Relationship Specialty Start Date End Date Aliica Maldonado MD [address] [place] [phone] PCP - General Internal Medicine 03/12/21 documented as of this encounter
--- OUTSIDE RECORDS SUMMARY | 2025-03-15 18:40 | XMS_ITS | Encounter Summary ---
Author Organization [employer] Address 75 [facility] [address], [place] [address] Care Team Providers Care Project Development Coordinator Name Role Phone Alicia Maldonado MD Primary Care Provider +1- [phone] Reason for Referral * Consultation (Routine) - Authorized Specialty Diagnoses / Procedures Referred By Contac t Referred To Contact Gastroenterology Diagnoses Chronic liver disease Alicia Maldonado MD [address] [place] [phone] Phone: tel: fax: Rosario Peterson MD [address] [place] [phone] Phone: tel: fax: Referral ID Status Reason Start Date Expiration Date Visits Requested Visits Authorized [id number] Authorized Specialty Services Required 03/07/2026 1 1 Encounter Details Date Type Department Care Team ([facility] st Contact Info) Description 03/07/2025 Orders Only [facility] CHC MED & PEDS [address] [place], [place] [phone] Alicia Maldonado MD [address] [place] [phone] Chronic liver disease (Primary Dx) Social History Tobacco Use Types [...] of this encounter Plan of Treatment Scheduled Referrals Name Type Priority Associated Diagnoses Order Schedule Referral to Gastroenterology Outpatient Referral Routine Chronic liver disease Expected: 03/07/2025 (Approximate), Expires: 03/07/2026 documented as of this encounter Visit Diagnoses Diagnosis Chronic liver disease- Primary Unspecified chronic liver disease without mention of alcohol documented in this encounter Additional Health Concerns Assessment Noted Time PHQ-9 Depression Total Score: 6 01/07/20 25 10:51 AM EDT documented as of this encounter Care Teams Project Development Coordinator Relationship Specialty Start Date End Date Alicia Maldonado MD [address] [place] [phone] PCP - General Internal Medicine 03/12/21 documented as of this encounter
--- OUTSIDE RECORDS SUMMARY | 2025-03-15 18:40 | XMS_ITS | Encounter Summary ---
Author Organization [employer] Address 75 [facility] 7t [place] [address] Care Team Providers Care Kineseologist Name Role Phone Alicia Maldonado MD Primary Care Provider +1- [phone] Encounter Details Date Type Department Care Team ([facility] st Contact Info) Description 03/10/2025 Telephone [facility] MEDICINE [address] [place] [address] Alicia Maldonado MD [address] [place] [address] Social History Tobacco Use Types Packs/Day Years [...] encounter Miscellaneous Notes * Telephone Encounter - Ghazala Nettles RN - 03/10/2025 10:05 AM EDT Pt family medical history updated * Telephone Encounter - Lisa Oropeza - 03/10/2025 9:59 AM EDT Tc from pt to report that his Grandfather from his mom side has Colon Cancer, Prostate Cancer and Liver cancer. Just FYI documented in this encounter Plan of Treatment Not on file documented as of this encounter Visit Diagnoses Not on filedocumented in this encounter Additional Health Concerns Assessment Noted Time PHQ-9 Depression Total Score: 6 01/07/20 25 10:51 AM EDT documented as of this encounter Care Teams Kineseologist Relationship Specialty Start Date End Date Alicia Maldonado MD [address] [place] [phone] PCP - General Internal Medicine 03/12/21 documented as of this encounter
--- OUTSIDE RECORDS SUMMARY | 2025-03-15 18:40 | XMS_ITS | Encounter Summary ---
Author Organization [employer] Address [address] [facility] [address] 7t [place] [address] Care Team Providers Care Port Captain Name Role Phone Alicia Maldonado MD Primary Care Provider +1- [phone] Encounter Details Date Type Department Care Team (Late st Contact Info) Description 03/15/2025 Orders Only GENERIC EXTERNAL DATA DEPARTMENT Provider, Generic External Data Social History Tobacco Use Types Packs/Day Years [...] as of this encounter Plan of Treatment Pending Results Name Type Priority Associated Diagnoses Date /Time Hepatic Function Panel Lab Routine 3:28 PM EDT C-reactive Protein Lab Routine 2024 3:28 PM EDT documented as of this encounter Procedures Procedure Name Priority Date/Time Associated Diagnosis Comments PLATELET COUNT Routine 03/15/2025 3:28 PM EDT C-REACTIVE PROTEIN Routine 03/15/2025 3: 28 PM EDT HEPATIC FUNCTION PANEL Routine 03/15/2025 3:28 PM EDT documented in this encounter Results * Platelet Count (03/15/2025 3:28 PM EDT) Platelet Count 301 160 - 400 X10*3/uL [facility] 03/15/2025 3:28 PM EDT 03/15/2025 3:28 PM EDT us Generic External Data Provider LAB BLOOD ORDERAB LES Final Result [facility] [address] [place] [address] [phone] documented in this encounter Visit Diagnoses Not on filedocumented in this encounter Additional Health Concerns Assessment Noted Time PHQ-9 Depression Total Score: 6 01/07/20 25 10:51 AM EDT documented as of this encounter Care Teams Port Captain Relationship Specialty Start Date End Date Alicia Maldonado MD [address] [place] [phone] PCP - General Internal Medicine 10/25/21 documented as of this encounter
--- OUTSIDE RECORDS SUMMARY | 2025-03-15 18:40 | XMS_ITS | Encounter Summary ---
Author Organization [employer] Address 75 [facility] 7 [place] [address] Care Team Providers Care Clinical Recruiter Name Role Phone Alicia Maldonado MD Primary Care Provider +1- [phone] Reason for Referral * Imaging (Routine) - Closed Specialty Diagnoses / Procedures Referred By Contac t Referred To Contact Radiology Diagnoses Transaminitis Procedures US Abdomen Comp w elastography Alicia Maldonado MD [address] [place] [address] Phone: tel: fax: [address] Phone: tel: fax: Referral ID Status Reason Start Date Expiration Date Visits Re quested Visits Authorized [id number] Closed 01/06/2025 01/06/2026 1 1 Encounter Details Date Type Department Care Team (Late st Contact Info) Description 01/06/2025 Orders Only [facility] CHC MED & PEDS [address] [place], [place] [phone] Alicia Maldonado MD [address] [place] [address] Transaminitis (Primary Dx) Social History Tobacco Use [...] Routine Transaminitis Expected: 01/06/2025 (Approximate), Expires: 01/06/2026 documented as of this encounter Procedures Procedure Name Priority Date/Time Associated Diagnosis Comments US ABDOMEN COMPLETE WITH ELASTOGRAPHY Routine 03/07/2025 8:15 AM EDT Transaminitis CHLAMYDIA/TRICHOMONAS /NEISSERIA GONORRHOEAE, PCR, URINE Routine 02/07/2025 10:55 AM EDT Transaminitis HEPATITIS PANEL, GENERAL Routine 02/07/2025 10:48 AM EDT Transaminitis IRON AND TOTAL IRON BINDING CAPACITY Routine 02/07/2025 10:48 AM EDT Transaminitis PROTHROMBIN TIME-INR Routine 02/07/2025 10:48 AM EDT Transaminitis IMMUNOGLOBULINS, QUANTITATIVE, IGA, IGG, IGM Routine 02/07/2025 10:48 AM EDT Transaminitis FERRITIN Routine 02/07/2025 10:48 AM EDT Transaminitis CHLAMYDIA/TRICHOMONAS /NEISSERIA GONORRHOEAE, PCR, URINE Routine 01/06/2025 11:11 AM EDT Transaminitis documented in this encounter Results * US Abdomen Comp w elastography (03/07/2025 8:15 AM EDT) Anatomical Region Laterality Modality Abdomen Ultrasound 03/07/2025 8:15 AM EDT Narrative 03/07/2025 8:57 AM EDT [place] [address] Ultrasound Report Signed Patient: Eric Lanier MR#: [id number] [birth year] : 1990 Acct:[id number] Age/Sex: 34 / M ADM Date: 03/07/25 Loc: HO.US Attending Dr: Alicia Maldonado MD Ordering Physician: Alicia Maldonado MD Date of Service: 03/07/25 Procedure(s): US abdomen comp w elastography Accession Number(s): [id number] cc: Alicia Maldonado MD Reason for Exam: [...] Olvera MD in OV> 03/07/25 0854 DD/ 0815 TD/TT: 03/07/25 0835 Zinc Plating Machine Operator: Procedure Note Donotuseinterpreter, Image - 03/07/[address] [address] Ultrasound Report Signed Patient: Karina Lanier#: [id number] 2 : 1990Acct:[id number] Age/Sex: 34 / MADM Date: 03/07/25 Loc: HO.US Attending Dr: Alicia Maldonado MD Ordering Physician: Alicia Maldonado MD Date of Service: 03/07/25 Procedure(s): US abdomen comp w elastography Accession Number(s): [id number] cc: Alicia Maldonado MD Reason for Exam: [...] Olvera MD in OV> 03/07/25 0854 DD/ 0815 TD/TT: 03/07/25 0835 Zinc Plating Machine Operator: us Alicia Maldonado MD [facility] [place]EDURES Edited Re sult - Final * Chlamydia/Trichomonas/Neisseria gonorrhoeae, PCR, Urine (02/07/2025 10:55 AM EDT) CT PCR, Urine NOT DETECTED Not Detect. [facility] Comment:A not detected test result [...] NG PCR, Urine NOT DETECTED Not Detect. [facility] Comment:A not detected test result [...] 5 AM EDT 02/07/2025 2:28 PM EDT Alicia aMldonado MD LAB URINE ORDERABLES Final Result [facility] [address] [place] [address] [phone] * Hepatitis Panel, General (02/07/2025 10:48 AM EDT) Hepatitis A IgM Nonreactive Nonreactive [facility] Comment:IgM antibodies to GUILLEN V not detected; does not exclude earlyacute or recovered HAV infection. ~Hepatitis B Surface Antibody REACTIVE Nonreactive [facility] Comment:REACTIVE: > 11.99 mI U/mL Hepatitis B Core Antibody Nonreactive Nonreactive [facility] Hepatitis C Antibody Nonreactive Nonreactive [facility] Comment:Antibodies to HCV no t detected; does not exclude early acuteHCV infection. Hepatitis B Surface Ag Negative Negative [facility] Blood Venous blood specimen / Unknown 02/07/2025 10:48 AM EDT 02/07/2025 2:14 PM EDT us Alicia Maldonado MD LAB BLOOD ORDERABLES Final Result Performing Organization Address [facility] Co de Phone Number [facility] [address] [place] [phone] * Iron And Total Iron Binding Capacity (02/07/2025 10:48 AM EDT) Iron 100 45 - 160 mcg/dL [facility] Total Iron Binding Capacity 246 228 - 428 mcg/dL [facility] Percent Iron Saturation 41 15 - 50 % [facility] Unsaturated Iron Binding 146 ug/dL [facility] Blood Venous blood specimen / Unknown 02/07/2025 10:48 AM EDT 02/07/2025 2:14 PM EDT us Alicia Maldonado MD LAB BLOOD ORDERABLES Final Result Performing Organization Address [facility] Co de Phone Number [facility] [address] [place] [phone] * Ferritin (02/07/2025 10:48 AM EDT) Ferritin 108 20 - 250 ng/mL [facility] Blood Venous blood specimen / Unknown 02/07/2025 10:48 AM EDT 02/07/2025 2:14 PM EDT us Alicia Maldonado MD LAB BLOOD ORDERABLES Final Result Performing Organization Address City/[facility] Co de Phone Number [facility] [address] [place] [address] [phone] * Prothrombin Time-INR (02/07/2025 10:48 AM EDT) Prothrombin Time 11.6 10.9 - 12.4 SEC [facility] INTERNATIONAL NORM RATIO 1.0 0.9 - 1.1 [facility] Comment:INTERNATIONAL NORMAL IZED RATIO (INR) [...] BLOOD ORDERABLES Final Result Performing Organization Address City/[facility]/ZIP Co de Phone Number [facility] [address] [place] [phone] * (ABNORMAL) Immunoglobulins, Quantitative, IgA, IgG, IgM (02/07/2025 10:48 AM EDT) IMMUNOGLOBULIN G 1534 600 - 1640 mg/dL [facility] IMMUNOGLOBULIN A 362(A) 47 - 310 mg/dL [facility] Immunoglobulin M 194 50 - 300 mg/dL [facility] Comment:THIS TEST WAS PERFOR MED AT:[facility] [address] [id number] HENSON MD Blood Venous blood specimen / Unknown 02/07/2025 10:48 AM EDT 02/07/2025 2:14 PM EDT us Alicia Maldonado MD LAB BLOOD ORDERABLES Final Result [facility] [address] [place] [phone] [phone] * Chlamydia/Trichomonas/Neisseria gonorrhoeae, PCR, Urine (01/06/2025 11:11 AM EDT) CT PCR, Urine NOT DETECTED Not Detect. [facility] Comment:A not detected test result [...] NG PCR, Urine NOT DETECTED Not Detect. [facility] Comment:A not detected test result [...] Maldonado MD LAB URINE ORDERABLES Final Result [facility] [address] [place] [address] [phone] documented in this encounter Visit Diagnoses Diagnosis Transaminitis- Primary Nonspecific elevation of levels of transaminase or lactic acid dehydrogenase (LDH) documented in this encounter Additional Health Concerns Assessment Noted Time PHQ-9 Depression Total Score: 6 01/07/20 25 10:51 AM EDT documented as of this encounter Care Teams Clinical Recruiter Relationship Specialty Start Date End Date Alicia Maldonado MD [address] [place] [address] PCP - General Internal Medicine 03/12/21 documented as of this encounter
== END 2025-03-15 15:04 | disposition home or self-care (01) ==
LOC: HO.HGI 14:20
PROVIDERS: PCP Internal Medicine; Visit Provider Nurse Practitioner Family
DX: R74.01 Elevation of levels of liver transaminase levels (principal); K76.0 Fatty (change of) liver, not elsewhere classified
CPT/HCPCS: 99214

== ENCOUNTER 2025-03-15 14:19 | Outpatient (REF) | payer OTHER, SELFPAY ==
[2025-03-15 16:10] LABS: Platelet Count 301 X10*3/uL (160-400)
[2025-03-15 16:47] LABS: Alanine Aminotransferase 31 U/L (0-40); Albumin Level 4.9 g/dL (3.5-5.0); Alkaline Phosphatase 107 U/L (39-117); Aspartate Amino Transferase 33 U/L (5-37); Total Protein 8.1 g/dL (6.5-8.0)
[2025-03-15 19:34] LABS: Gamma Glutamyl Transpeptidase 24 U/L (11-51)
[2025-03-21 17:28] LABS: Anti Nuclear Antibody Screen NEGATIVE (NEGATIVE)
[2025-03-22 01:09] LABS: FIB-ALT 19 U/L (9-46); FIB-Alpha-2-Macroglobulin 157 mg/dL (106-279); FIB-Apolipoprotein A1 127 mg/dL (94-176); FIB-GGT 19 U/L (3-90); FIB-Haptoglobin 103 mg/dL (43-212); FIB-Total Bilirubin 0.4 mg/dL (0.2-1.2); Liver Fibrosis Score 0.10; Liver Fibrosis Stage F0; Nec Inflam Act Grade A0; Nec Inflam Act Score 0.06
== END 2025-03-15 14:20 | disposition home or self-care (01) ==
LOC: HO.LAB 14:19
PROVIDERS: PCP Internal Medicine; Visit Provider Nurse Practitioner Family
DX: R74.01 Elevation of levels of liver transaminase levels (principal); K76.0 Fatty (change of) liver, not elsewhere classified; R74.8 Abnormal levels of other serum enzymes; R79.89 Other specified abnormal findings of blood chemistry
CPT/HCPCS: 36415; 80076; 81596; 82105; 82390; 82977; 85049; 86015; 86038; 86140; 86381; 99212